=== PATIENT | male | born 2000 | race Caucasian/White ===

== ENCOUNTER 2020-12-18 12:00 | Emergency (ER) | payer OTHER, SELFPAY ==
--- NOTE | 2020-12-18 13:11 | ED.EXTPRO ---
HPI - Extremity Problem General Chief complaint: Extremity Injury, Upper Stated complaint: arm pain Time Seen by Provider: 12/18/20 13:11 History of Present Illness HPI Narrative: Patient complains of left arm pain worse today after lifting weights yesterday, he did not feel a pop or any sudden pain but today he woke up with pain around his biceps muscle, no numbness no weakness no tingling, no other injury Related Data Previous Rx's Medication Instructions Recorded ibuprofen 600 mg PO Q6H PRN #20 tab 12/18/20 Allergies Allergy/AdvReac Type Severity Reaction Status Date / Time pistachio nut [PISTACHIO] Allergy Severe VOMITS Unverified 08/14/20 16:43 THROAT SWELLING DIFFICULTY BREATHING sunflower seed Allergy Unknown VOMITING Unverified 08/14/20 16:43 [SUNFLOWER SEED] Review of Systems Review of Systems: Positive for left arm pain Negatives are no dizziness no weakness no numbness no fatigue no tingling no radiation of pain no skin changes no skin rash PMFSH Past Medical History Source: nursing notes reviewed Medical History (Updated 12/18/20 @ 13:31 by Charo Catherine) No known health problems Social History Social History Smoked in Last 30 Days: No Use of substances other than those prescribed or required for medical reasons: Yes Substance Use Type: Marijuana Substance Use Frequency: Daily Last Used Substance: Hours (ago) Any prior treatment program specific to substance use: No Advance Directives: No Advance Directives Information Provided: Yes Physical Exam Vital Signs: Vital Signs: Last Vital Signs Temp 98.8 F 12/18/20 13:29 Pulse 70 12/18/20 13:29 Resp 14 12/18/20 13:29 BP 126/78 12/18/20 13:29 Pulse Ox 99 12/18/20 13:29 Body Mass Index 19.8 General appearance no acute distress, comfortable and cooperative Normocephalic atraumatic Neck is supple Respiratory no distress Extremities exam of the left arm showed full range of motion without tenderness in the shoulder, the antecubital area and the distal biceps was very tender with no obvious swelling, no obvious defect or deformity, skin was normal in color without ecchymosis, no redness no signs of infection The elbow had limited range of motion on extension due to pain the patient could do it but was uncomfortable and flexion of the biceps was uncomfortable The wrist had full range of motion the forearm was normal,, and neurovascular intact distal Skin no rashes Neuro no focal deficit Course Course Course Narrative: Patient's exam is consistent with either a biceps muscle strain or possible partial tear of biceps tendon and patient is advised to follow-up with orthopedics Discharge Plan Discharge Clinical Impression: Strain of left biceps muscle Qualifiers: Encounter type: initial encounter Qualified Code(s): S46.212A - Strain of muscle, fascia and tendon of other parts of biceps, left arm, initial encounter Patient Disposition: Home, Self-Care Additional Instructions: I believe you injure the biceps muscle or tendon Follow with orthopedist for further evaluation Return any time any worse condition or any concerns Prescriptions: New ibuprofen 600 mg tablet 600 mg PO Q6H PRN (Reason: pain) Qty: 20 RF: 0 Referrals: Catarino Martino MD [Physician] - 2 days (Left bicep tendon or muscle injury) Interventions: ED Discharge Assessment Last Done: 12/18/20 13:40 Discharge Date/Time: 12/18/20 13:40
[2020-12-18 13:29] VITALS: BP 126/78; PULSE 70; RESP 14; TEMP 37.1; O2SAT 99; BMI 19.8
== END 2020-12-18 13:40 | disposition home or self-care (01) ==
PROVIDERS: Emergency Provider Emergency Medicine Emergency Medical Services
DX: S46.212A Strain of muscle, fascia and tendon of other parts of biceps, left arm, initial encounter (principal); M79.602 Pain in left arm; X50.0XXA Overexertion from strenuous movement or load, initial encounter; Y93.9 Activity, unspecified; Y92.9 Unspecified place or not applicable; Y99.9 Unspecified external cause status; Z79.899 Other long term (current) drug therapy
CPT/HCPCS: 99283

== ENCOUNTER 2021-01-05 09:29 | Emergency (ER) | payer OTHER, SELFPAY ==
--- NOTE | 2021-01-05 10:34 | ED_ITS ---
HPI - Abdominal Pain General Chief Complaint: Nausea/Vomiting/Diarrhea Stated Complaint: stomach pain Time Seen by Provider: 01/05/21 10:13 Source: patient Mode of arrival: ambulatory Limitations: no limitations History of Present Illness HPI narrative: 20-year-old male previously healthy here with complaints of epigastric pain which occurs after eating and is associated with nausea x months. The patient tells me sometimes he has vomiting and he vomits up food contents. NBNB emesis. No associated diarrhea, fevers, chills. No weight loss. Patient tells me he is here because she would like some nausea medicine. He is working on getting himself set up with a primary care doctor. He smokes marijuana daily. Denies additional substance use or alcohol use. MD elicited complaint: abdominal pain Pain Consistency: intermittent Location: epigastric Quality: burning Radiation: none Migration to: no migration Exacerbating factors: eating Relieving factors: vomiting Associated symptoms: nausea and vomiting Related Data Previous Rx's Medication Instructions Recorded ibuprofen 600 mg PO Q6H PRN #20 tab 12/18/20 omeprazole 40 mg PO DAILY #14 cap 01/05/21 ondansetron 4 mg PO Q6H PRN #10 tab 01/05/21 Allergies Allergy/AdvReac Type Severity Reaction Status Date / Time pistachio nut [PISTACHIO] Allergy Severe VOMITS Verified 01/05/21 10:41 THROAT SWELLING DIFFICULTY BREATHING sunflower seed Allergy Unknown VOMITING Verified 01/05/21 10:41 [SUNFLOWER SEED] Review of Systems Review of Systems Yes all other systems are reviewed and are negative Constitutional: Reports no additional constitutional complaints, Denies body ache(s), Denies chills, Denies fever(s), Denies headache(s) and Denies weakness Eyes: Reports no additional eye complaints and Denies change in vision Reports system reviewed and no additional complaints, except as documented, Denies dizziness, Denies headache(s), Denies nasal congestion, Denies nasal discharge and Denies neck pain Cardiovascular: Reports no additional cardiovascular complaints, Denies chest pain, Denies leg edema and Denies dyspnea Respiratory: Reports no additional respiratory complaints, Denies cough and Denies dyspnea Gastrointestinal: Reports no additional gastrointestinal complaints, Reports abdominal pain, Denies diarrhea, Reports nausea and Reports vomiting Genitourinary: Denies urinary incontinence Musculoskeletal: Reports no additional musculoskeletal complaints, Denies back pain, Denies arthralgias, Denies joint swelling, Denies neck pain, Denies numbness and Denies tingling Skin/Breast: Reports system reviewed and no additional complaints, except as docu and Denies rash Reports system reviewed and no additional complaints, except as documented, Denies Abnormal speech present, Denies dizziness, Denies headache(s), Denies numbness, Denies tingling and Denies weakness Physical Exam Vital Signs: Vital Signs: Last Vital Signs Temp 97.8 F 01/05/21 10:38 Pulse 64 01/05/21 10:38 Resp 16 01/05/21 10:38 BP 132/85 01/05/21 10:38 Pulse Ox 99 01/05/21 10:38 Body Mass Index 19.8 Const: General: cooperative, healthy appearing, comfortable and no acute distress Orientation/consciousness: patient oriented x3 Limitations: no limitations HENMT: Head: Yes normal to inspection Ears: hearing grossly normal bilaterally General nose exam: Normal external nose present Face and sinus: Yes normal facial exam Mouth: Normal oral and palatal mucosa present Throat: Yes posterior oropharynx normal Eyes: General: appearance normal, both eyes and all related structures Pupils: Equal, round and reactive pupils present Neck: Neck: Yes normal visual inspection Chest: Chest palpation & inspection: normal inspection of the chest Resp: Effort & Inspection: normal respiratory effort Auscultation: clear to auscultation bilaterally Cardio: Rate: regular rate Rhythm: regular rhythm Peripheral pulses: Peripheral pulses 2+ throughout GI: Inspection: Yes normal to inspection Palpation (GI): Soft to palpation and nontender Auscultation: normal bowel sounds Back/Spine/Pelvis: Thoracic/Lumbar Spine: thoracic and lumbar spine normal to inspection Skin: General skin exam: no rashes or lesions noted Neuro: General: patient oriented x3, no focal motor deficits and normal sensation to monofilament Cranial nerves: Yes Equal, round and reactive pupils present Cognition (Neuro): normal cognition Speech: No Abnormal speech present Gait exam (Neuro): Normal gait present Motor exam (neuro): 5/5 motor strength present throughout Extrem: General: Yes normal to inspection Course Course Course Narrative: 20-year-old male here with epigastric pain after eating with intermittent nausea and vomiting times several months. Patient denies pain on arrival to the emergency department. He tells me he is feels well and is tolerating p.o. he is working on establishing a primary care doctor. He requesting nausea medicine. Abdomen soft nontender, patient is well-appearing with stable vital signs. Likely GERD. Will start patient on PPI until he establishes a primary care doctor. Discussed GERD diet at home. Reviewed worrisome signs symptoms and when to return to the emergency department. Comfortable discharge home. Discharge Plan Discharge Clinical Impression: GERD (gastroesophageal reflux disease) Qualifiers: Esophagitis presence: esophagitis presence not specified Qualified Code(s): K21.9 - Gastro-esophageal reflux disease without esophagitis Patient Disposition: Home, Self-Care Instructions: Diet for Stomach Ulcers and Gastritis (ED), Gastroesophageal Reflux Disease (ED) Additional Instructions: Avoid all spicy, greasy, fatty foods, No dairy or citrus. VERY bland diet Avoid marijuana for a few weeks After eating stay sitting up for 30 minutes, do not eat within 2 hrs of sleeping Follow-up with PCP. Return for severe abdominal pain, 2 or more vomiting episodes, blood in the vomit or blood in the stools Prescriptions: New omeprazole 40 mg capsule,delayed release(DR/EC) 40 mg PO DAILY Qty: 14 RF: 0 ondansetron 4 mg tablet,disintegrating 4 mg PO Q6H PRN (Reason: nausea and vomiting) Qty: 10 RF: 0 No Action ibuprofen 600 mg tablet 600 mg PO Q6H PRN (Reason: pain) Qty: 20 RF: 0 Referrals: Physician,None [Primary Care Provider] - 2 days Interventions: ED Discharge Assessment Last Done: 01/05/21 10:42 Discharge Date/Time: 01/05/21 10:44 [facility] Past Medical History Attestation statement: The following information was validated with the patient. Source: old records reviewed and nursing notes reviewed Medical History No known health problems Social History Social History Substance Use Type: Marijuana Advance Directives: No Advance Directives Information Provided: No
[2021-01-05 10:38] VITALS: BP 132/85; PULSE 64; RESP 16; TEMP 36.6; O2SAT 99; BMI 19.8
== END 2021-01-05 10:44 | disposition home or self-care (01) ==
LOC: HO.ED 10:39
PROVIDERS: Emergency Provider Emergency Medicine
DX: K21.9 Gastro-esophageal reflux disease without esophagitis (principal); F12.90 Cannabis use, unspecified, uncomplicated
CPT/HCPCS: 99283

== ENCOUNTER 2021-05-24 20:41 | Emergency (ER) | payer OTHER, SELFPAY ==
[2021-05-24 20:44] VITALS: BP 136/75; PULSE 137; RESP 16; TEMP 36.8; O2SAT 97; BMI 20.4
--- NOTE | 2021-05-24 21:28 | ED.ABDPAIN ---
HPI - Abdominal Pain General Chief Complaint: Abdominal Pain Stated Complaint: ABD PAIN Time Seen by Provider: 05/24/21 21:26 History of Present Illness HPI narrative: 21-year-old male presented having abdominal pain. The pain is epigastric in nature. Happen after a milkshake. Patient denies having current pain. No nausea no vomiting. Symptom has completely resolved. No cough no congestion or upper respiratory symptoms. No diarrhea. No history of abdominal surgery. Patient is from home. Related Data Allergies Allergy/AdvReac Type Severity Reaction Status Date / Time pistachio nut [PISTACHIO] Allergy Severe VOMITS Verified 05/24/21 21:35 THROAT SWELLING DIFFICULTY BREATHING sunflower seed Allergy Unknown VOMITING Verified 05/24/21 21:35 [SUNFLOWER SEED] Review of Systems Review of Systems Positive abdominal pain positive nausea vomiting no diarrhea no upper respiratory symptoms Yes all other systems are reviewed and are negative Physical Exam Vital Signs: Vital Signs: Last Vital Signs Temp 99.7 F 05/24/21 21:35 Pulse 112 H 05/24/21 21:35 Resp 17 05/24/21 21:35 BP 132/85 05/24/21 21:35 Pulse Ox 99 05/24/21 21:35 Body Mass Index 20.4 Appearance: Alert. Oriented X3. No acute distress. Eyes: Pupils equal, round and reactive to light. ENT: Pharynx normal. Neck: Normal inspection. Neck supple. No lymph nodes noted. No crepitus CVS: Normal heart rate and rhythm. Pulses normal. Normal S1 and S2 Respiratory: No respiratory distress. Breath sounds normal. No Wheezing. No rales Abdomen: Soft and nontender. No rigidity. No distention. good BS x4 Skin: Skin warm and dry. Normal skin color. Normal skin turgor. Extremities: No lower extremity edema. Neurovascular intact to all extremities. No Lacerations. No Rash Neuro: Oriented X 3. No motor deficit. No sensory deficit. Moving all extermities. No slurred speech MDM - Abdominal Pain MDM Narrative Medical decision making narrative: Labs unremarkable. Patient well-appearing repeat abdominal exam soft nontender nondistended. Will discharge patient home close follow-up outpatient basis. No evidence for appendicitis at this time. Differential Diagnosis Differential diagnosis: Likely acute appendicitis, calculus of kidney and constipation Lab Data Result diagrams: 05/24/21 21:47 05/24/21 21:47 Labs: Lab Results 05/24/21 05/24/21 05/24/21 Range/Units 21:43 21:47 21:47 WBC 10.9 H (4.8-10.8) X10*3/uL RBC 5.35 (4.60-5.80) X10*6/uL Hgb 16.0 (14.0-18.0) g/dl Hct 45.9 (42-52) % MCV 85.8 (80-98) fL MCH 29.9 (27.0-33.0) pg MCHC 34.9 (31.0-36.0) g/dl RDW 12.1 (11.0-16.0) % Plt Count 177 (160-400) X10*3/uL MPV 9.8 (9.4-12.4) fL Immature Gran % (Auto) 0.2 (0.0-0.4) % Neut % (Auto) 83.6 H (45-73) % Lymph % (Auto) 6.6 L (20-40) % Phillips % (Auto) 8.5 (2-11) % Eos % (Auto) 0.6 (0-4) % Baso % (Auto) 0.5 (0-2) % Lymph # (Auto) 0.7 L (1.2-4.9) X10*3/uL Phillips # (Auto) 0.9 (0.1-1.2) X10*3/uL Eos # (Auto) 0.1 (0.0-0.4) X10*3/uL Baso # (Auto) 0.1 (0.0-0.2) X10*3/uL Abs Immat Gran (auto) 0.02 (0.00-0.03) X10*3/uL Absolute Neuts (auto) 9.1 H (2.0-8.3) X10*3/uL Absolute Nucleated RBC 0.000 (0.0-0.012) X10*3/uL Nucleated RBC % (auto) 0.0 (0.0-0.2) /100WBC Sodium 140 (135-145) mmol/L Potassium 4.4 (3.3-5.1) mmol/L Chloride 103 (96-108) mmol/L Carbon Dioxide 25 (22-29) mmol/L Anion Gap 16 (12-20) BUN 11 (9-16) mg/dL Creatinine 1.23 (0.5-1.4) mg/dL Estim Creat Clear Calc 93.6 Estimated GFR > 60 Random Glucose 87 (60-115) mg/dL Calcium 9.6 (8.4-10.2) mg/dL Total Bilirubin 1.0 (0.0-1.0) mg/dL AST 22 (5-37) U/L ALT 12 (0-40) U/L Alkaline Phosphatase 60 (39-117) U/L Total Protein 7.7 (6.5-8.0) g/dL Albumin 4.8 (3.5-5.0) g/dL Lipase 17 (8-78) U/L Urine Color DARK YELLOW Urine Appearance CLEAR Urine pH 6.0 (5.0-8.0) Ur Specific [place] 1.025 (1.005-1.025) Urine Protein TRACE (NEG-TRACE) MG/DL Urine Glucose (UA) NEG (NEG) MG/DL Urine Ketones 5 (NEG) MG/DL Urine Blood NEG (NEG) Urine Nitrite NEG (NEG) Ur Leukocyte Esterase NEG (NEG) Discharge Plan Discharge Clinical Impression: Abdominal pain Patient Disposition: Home, Self-Care Instructions: Abdominal Pain (ED) Referrals: Physician,None [Primary Care Provider] - 2 days PMF Past Medical History Attestation statement: The following information was validated with the patient. Medical History No known health problems Social History Social History Alcohol intake: never Patient Tobacco Use Status: Never used Tobacco Use of substances other than those prescribed or required for medical reasons: Yes Substance Use Type: Marijuana Advance Directives: No Advance Directives Information Provided: Yes
[2021-05-24 21:35] VITALS: BP 132/85; PULSE 112; RESP 17; TEMP 37.6; O2SAT 99
[2021-05-24 21:52] LABS: MANUAL DIFF FLAG NO
[2021-05-24 21:53] LABS: Basophils Absolute Auto 0.1 X10*3/uL (0.0-0.2); Basophils Percent Auto 0.5 % (0-2); Eosinophils Absolute Auto 0.1 X10*3/uL (0.0-0.4); Eosinophils Percent Auto 0.6 % (0-4); Hematocrit 45.9 % (42-52); Imm Gran Abs Auto 0.02 X10*3/uL (0.00-0.03); Imm Gran Pct Auto 0.2 % (0.0-0.4); Lymphocytes Absolute Auto 0.7 X10*3/uL (1.2-4.9); Lymphocytes Percent Auto 6.6 % (20-40); Mean Corpuscular HGB Conc 34.9 g/dl (31.0-36.0); Mean Corpuscular Hemoglobin 29.9 pg (27.0-33.0); Mean Corpuscular Volume 85.8 fL (80-98); Mean Platelet Volume 9.8 fL (9.4-12.4); Monocytes Absolute Auto 0.9 X10*3/uL (0.1-1.2); Monocytes Percent Auto 8.5 % (2-11); Neutrophils Absolute Auto 9.1 X10*3/uL (2.0-8.3); Neutrophils Percent Auto 83.6 % (45-73); Platelet Count 177 X10*3/uL (160-400); Red Blood Count 5.35 X10*6/uL (4.60-5.80); Red Cell Distribution Width 12.1 % (11.0-16.0); White Blood Count 10.9 X10*3/uL (4.8-10.8)
[2021-05-24 21:55] LABS: Appearance Urine CLEAR; Color Urine DARK YELLOW; Glucose Urine UA NEG (NEG); Leukocyte Esterase Urine NEG (NEG); Nitrite Urine NEG (NEG); Specific Gravity - Urine 1.025 (1.005-1.025); Urine Blood NEG (NEG); Urine Ketones 5 MG/DL (NEG); Urine Protein TRACE MG/DL (NEG-TRACE)
[2021-05-24 22:25] LABS: Alanine Aminotransferase 12 U/L (0-40); Albumin Level 4.8 g/dL (3.5-5.0); Alkaline Phosphatase 60 U/L (39-117); Anion Gap 16 (12-20); Aspartate Amino Transferase 22 U/L (5-37); Blood Urea Nitrogen 11 mg/dL (9-16); Calcium 9.6 mg/dL (8.4-10.2); Carbon Dioxide 25 mmol/L (22-29); Chloride 103 mmol/L (96-108); Creatinine Clr Calc Pharmacy 93.6; Estimated Glomerular Filt Rate > 60; Glucose Random 87 mg/dL (60-115); Lipase 17 U/L (8-78); Potassium 4.4 mmol/L (3.3-5.1); Sodium 140 mmol/L (135-145); Total Protein 7.7 g/dL (6.5-8.0)
== END 2021-05-24 23:10 | disposition home or self-care (01) ==
PROVIDERS: Emergency Provider Emergency Medicine Emergency Medical Services
DX: R10.13 Epigastric pain (principal)
CPT/HCPCS: 36415; 80053; 81003; 83690; 85025; 99283; 99285

== ENCOUNTER 2021-05-26 12:56 | Emergency (ER) | payer OTHER, SELFPAY ==
[2021-05-26 13:25] VITALS: PULSE 103; RESP 18; TEMP 36.7; O2SAT 98; BMI 20.4
--- NOTE | 2021-05-26 14:28 | ED_ITS ---
HPI - Abdominal Pain General Chief Complaint: Abdominal Pain Stated Complaint: stomach pain Time Seen by Provider: 05/26/21 13:41 Source: patient Mode of arrival: ambulatory History of Present Illness HPI narrative: 21-year-old male presenting to the ED complaining of generalized abdominal pain, nausea, & 1 episode of vomiting [employer] , resolved at present. Requesting prescription for Zofran. Admits seen and treated in the ED 2 days ago for similar symptoms, had Zofran with symptomatic improvement. denies fever, chills, diarrhea / constipation, suspicious food intake, dysuria/ hematuria, travel, sick contacts MD elicited complaint: abdominal pain Related Data Previous Rx's Medication Instructions Recorded ondansetron HCl [Zofran] 4 mg PO Q8H PRN #10 tab 05/26/21 Allergies Allergy/AdvReac Type Severity Reaction Status Date / Time pistachio nut [PISTACHIO] Allergy Intermediate VOMITS Verified 05/26/21 13:25 THROAT SWELLING DIFFICULTY BREATHING sunflower seed Allergy Unknown VOMITING Verified 05/26/21 13:25 [SUNFLOWER SEED] Review of Systems Review of Systems Constitutional: No Fever, No Chills Gastrointestinal: +Nausea(resolved), +Vomiting (resolved), No Diarrhea, No Constipation, +Abdominal pain (resolved) Genitourinary: No Dysuria, No Hematuria,No Flank Pain Musculoskeletal: No joint pain, No Myalgias, No Joint Swelling Skin: No Skin Lesions, No rash Neuro: No Weakness, No Nu No Headache Yes all other systems are reviewed and are negative Physical Exam Vital Signs: Vital Signs: Last Vital Signs Temp 98.0 F 05/26/21 13:25 Pulse 103 H 05/26/21 13:25 Resp 18 05/26/21 13:25 Pulse Ox 98 05/26/21 13:25 Body Mass Index 20.4 Const: General: cooperative, healthy appearing and no acute distress Orientation/consciousness: patient oriented x3 Limitations: no limitations HENMT: Head: Yes normal to inspection Ears: hearing grossly normal bilaterally General nose exam: Normal external nose present Face and sinus: Yes normal facial exam Eyes: General: appearance normal, both eyes and all related structures EOM: EOMs intact bilaterally Neck: Neck: Yes normal visual inspection and Yes no meningeal signs Resp: Effort & Inspection: normal respiratory effort Cardio: Rate: regular rate GI: Inspection: Yes normal to inspection Palpation (GI): Soft to palpation, nontender, no guarding and not rigid : General: Yes no CVA tenderness Back/Spine/Pelvis: Back: no CVA tenderness Skin: Rashes: no rashes Wounds: no wounds Neuro: General: patient oriented x3 and no meningeal signs Gait exam (Neuro): Normal gait present Extrem: General: Yes normal to inspection MDM - Abdominal Pain MDM Narrative Medical decision making narrative: 21-year-old male presenting to the ED complaining of generalized abdominal pain, nausea, & 1 episode of vomiting [employer] , resolved at present. on exam VSS, NAD, well appearing, asymptomatic at present, abdomen soft and nontender, no CVAT. Visit/ labs reviewed from 2 days ago which were unremarkable. Likely gastroenteritis or gastritis/GERD. Low concern for appendicitis / diverticulitis, cholecystitis or pancreatitis Plan: Zofran prescription, strict return precautions discussed, patient verbalized understanding and feels safe for discharge home Discharge Plan Discharge Clinical Impression: Abdominal pain Qualifiers: Abdominal location: unspecified location Qualified Code(s): R10.9 - Unspecified abdominal pain Patient Disposition: Home, Self-Care Instructions: Acute Nausea and Vomiting (ED) Additional Instructions: Zofran as an antinausea medication, take as needed You need to follow-up with her primary care doctor If her symptoms persist or worsen, become more constant, you are unable to eat or drink, develops fever, or abdominal pain please return to the ED Prescriptions: New ondansetron HCl [Zofran] 4 mg tablet 4 mg PO Q8H PRN (Reason: nausea and vomiting) Qty: 10 RF: 0 Referrals: Physician,None [Primary Care Provider] - 2 days PMFSH Past Medical History Attestation statement: The following information was validated with the patient. Medical History No known health problems Social History Social History Alcohol intake: never Patient Tobacco Use Status: Never used Tobacco Substance Use Type: Marijuana Advance Directives: No Advance Directives Information Provided: No
== END 2021-05-26 15:13 | disposition home or self-care (01) ==
PROVIDERS: Emergency Provider Emergency Medicine Emergency Medical Services
DX: R10.84 Generalized abdominal pain (principal); R11.2 Nausea with vomiting, unspecified
CPT/HCPCS: 99283

== ENCOUNTER 2021-07-17 06:45 | Emergency (ER) | payer OTHER, SELFPAY ==
[2021-07-17 08:22] VITALS: BP 136/73; PULSE 83; RESP 18; TEMP 36.7; O2SAT 97
[2021-07-17 09:27] LABS: MANUAL DIFF FLAG NO
[2021-07-17 09:28] LABS: Basophils Percent Auto 0.5 % (0-2); Eosinophils Absolute Auto 0.2 X10*3/uL (0.0-0.4); Eosinophils Percent Auto 2.1 % (0-4); Hematocrit 46.7 % (42-52); Hemoglobin 15.9 g/dl (14.0-18.0); Imm Gran Abs Auto 0.03 X10*3/uL (0.00-0.03); Imm Gran Pct Auto 0.4 % (0.0-0.4); Lymphocytes Absolute Auto 1.2 X10*3/uL (1.2-4.9); Lymphocytes Percent Auto 14.6 % (20-40); Mean Corpuscular Hemoglobin 29.2 pg (27.0-33.0); Mean Corpuscular Volume 85.8 fL (80-98); Mean Platelet Volume 9.8 fL (9.4-12.4); Monocytes Absolute Auto 0.4 X10*3/uL (0.1-1.2); Neutrophils Absolute Auto 6.4 X10*3/uL (2.0-8.3); Neutrophils Percent Auto 77.4 % (45-73); Platelet Count 187 X10*3/uL (160-400); Red Blood Count 5.44 X10*6/uL (4.60-5.80); Red Cell Distribution Width 12.5 % (11.0-16.0); White Blood Count 8.2 X10*3/uL (4.8-10.8)
[2021-07-17] MEDS: 0.9 % Sodium Chloride 1,000 ML 999 ML IV ×2 (09:33→10:15)
[2021-07-17 10:00] LABS: COVID-19 Test Negative (Negative)
[2021-07-17 10:09] LABS: Alanine Aminotransferase 18 U/L (0-40); Albumin Level 4.9 g/dL (3.5-5.0); Alkaline Phosphatase 53 U/L (39-117); Anion Gap 14 (12-20); Aspartate Amino Transferase 16 U/L (5-37); Bilirubin Direct 0.5 mg/dL (0.0-0.5); Bilirubin Total 1.3 mg/dL (0.0-1.0); Blood Urea Nitrogen 11 mg/dL (9-16); Calcium 9.9 mg/dL (8.4-10.2); Carbon Dioxide 26 mmol/L (22-29); Chloride 104 mmol/L (96-108); Creatinine Clr Calc Pharmacy 94.1; Estimated Glomerular Filt Rate > 60; Glucose Random 97 mg/dL (60-115); Lipase 17 U/L (8-78); Potassium 4.3 mmol/L (3.3-5.1); Sodium 140 mmol/L (135-145); Total Protein 7.3 g/dL (6.5-8.0)
--- NOTE | 2021-07-17 10:09 | ED_ITS ---
HPI - Abdominal Pain General Chief Complaint: Abdominal Pain Stated Complaint: stomach bug Time Seen by Provider: 07/17/21 09:30 Source: patient Mode of arrival: ambulatory Limitations: no limitations History of Present Illness HPI narrative: Patient presents to the ED for upper abdominal discomfort and vomiting after having new Vanilla Setswana Coffee from [employer]. Patient states never having thai Vanilla Coffee from [employer] and states it tasted weird. Patient states by the time he came to the ED symptoms resolved. Patient did not having food this morning. Patient denies any fever, chills, or diarrhea. Patient denies any surgical abdominal history. MD elicited complaint: abdominal pain Related Data Previous Rx's Medication Instructions Recorded ondansetron HCl 4 mg tablet 4 mg PO Q8H PRN #10 tab 05/26/21 (Zofran) Allergies Allergy/AdvReac Type Severity Reaction Status Date / Time pistachio nut [PISTACHIO] Allergy Intermediate VOMITS Verified 05/26/21 13:25 THROAT SWELLING DIFFICULTY BREATHING sunflower seed Allergy Unknown VOMITING Verified 05/26/21 13:25 [SUNFLOWER SEED] peanut Allergy Anaphylaxis Verified 07/17/21 08:25 Review of Systems Review of Systems Yes all other systems are reviewed and are negative Constitutional: Reports as per HPI and Reports no additional constitutional complaints Eyes: Reports as per HPI and Reports no additional eye complaints Reports system reviewed and no additional complaints, except as documented and Reports as per HPI Cardiovascular: Reports as per HPI and Reports no additional cardiovascular complaints Respiratory: Reports as per HPI and Reports no additional respiratory complaints Gastrointestinal: Reports as per HPI, Reports no additional gastrointestinal complaints, Reports abdominal pain and Reports nausea Genitourinary: Reports no additional male genitourinary complaints and Reports as per HPI Musculoskeletal: Reports no additional musculoskeletal complaints and Reports as per HPI Reports system reviewed and no additional complaints, except as documented and Reports as per HPI Psychiatric: Reports no additional psychiatric complaints and Reports as per HPI Physical Exam Vital Signs: Vital Signs: Last Vital Signs Temp 98.0 F 07/17/21 08:22 Pulse 70 07/17/21 10:13 Resp 18 07/17/21 10:13 BP 126/47 L 07/17/21 10:13 Pulse Ox 99 07/17/21 10:13 Body Mass Index 20.0 Const: General: cooperative, healthy appearing, comfortable, no acute distress, well developed, alert, awake and Physically active Orientation/consciousness: oriented to time and patient oriented x3 HENMT: Head: Yes normal to inspection, Yes No palpable skull fracture present, Yes normocephalic and Yes atraumatic Eyes: General: appearance normal, both eyes and all related structures Neck: Neck: Yes normal visual inspection, Yes full ROM, Yes no ly mphadenopathy, Yes no meningeal signs, Yes trachea midline, Yes supple and No tender Chest: Chest palpation & inspection: normal inspection of the chest and normal palpation of entire chest wall Resp: Effort & Inspection: normal respiratory effort and able to speak in complete sentences Auscultation: clear to auscultation bilaterally Cardio: Jugular venous distension: no JVD Heart sounds: S1 normal heart sound present and S2 normal heart sound present GI: Inspection: Yes normal to inspection and No abdominal wall ecchymosis Palpation (GI): Soft to palpation, not firm, nontender, no guarding and not rigid : General: No CVA tenderness and Yes no CVA tenderness Back/Spine/Pelvis: Back: no CVA tenderness, No CVA tenderness and No back tenderness Skin: General skin exam: no rashes or lesions noted and elasticity normal Neuro: General: oriented to time, patient oriented x3, gait normal, no meningeal signs and CN's II-XI intact bilaterally Cranial nerves: Yes CN's II-XII intact bilaterally Extrem: General: Yes normal to inspection and Yes full ROM Right upper extremity: normal to inspection Psych: Appearance: grossly normal, well kempt and not disheveled Course Course Course Narrative: Bedside ultrasound negative for gallstones. Patient presently asymptomatic will just give IV fluids. Basic labs ordered an COVID swab. Reevaluation(s) Reevaluation #1: Patient had some pain and nausea that return and resolved after being given Pepcid and nausea medication. Patient states feels fine and would like to be discharged. Abdomen re-examined negative for any tenderness on palpation. Labs are normal. Waiting for UA. Time: 11:40 Reevaluation #2: Patient urinalysis negative. Patient feels better would like to be discharged. Patient educated on brat diet. MDM - Abdominal Pain MDM Narrative Medical decision making narrative: Food poising Lab Data Result diagrams: 07/17/21 09:23 07/17/21 09:23 Labs: Lab Results 0807/17/21 07/17/21 Range/Units 09:23 09:23 09:30 WBC 8.2 (4.8-10.8) X10*3/uL RBC 5.44 (4.60-5.80) X10*6/uL Hgb 15.9 (14.0-18.0) g/dl Hct 46.7 (42-52) % MCV 85.8 (80-98) fL MCH 29.2 (27.0-33.0) pg MCHC 34.0 (31.0-36.0) g/dl RDW 12.5 (11.0-16.0) % Plt Count 187 (160-400) X10*3/uL MPV 9.8 (9.4-12.4) fL Immature Gran % (Auto) 0.4 (0.0-0.4) % Neut % (Auto) 77.4 H (45-73) % Lymph % (Auto) 14.6 L (20-40) % [place] % (Auto) 5.0 (2-11) % Eos % (Auto) 2.1 (0-4) % Baso % (Auto) 0.5 (0-2) % Lymph # (Auto) 1.2 (1.2-4.9) X10*3/uL [place] # (Auto) 0.4 (0.1-1.2) X10*3/uL Eos # (Auto) 0.2 (0.0-0.4) X10*3/uL Baso # (Auto) 0.0 (0.0-0.2) X10*3/uL Abs Immat Gran (auto) 0.03 (0.00-0.03) X10*3/uL Absolute Neuts (auto) 6.4 (2.0-8.3) X10*3/uL Absolute Nucleated RBC 0.000 (0.0-0.012) X10*3/uL Nucleated RBC % (auto) 0.0 (0.0-0.2) /100WBC Sodium 140 (135-145) mmol/L Potassium 4.3 (3.3-5.1) mmol/L Chloride 104 (96-108) mmol/L Carbon Dioxide 26 (22-29) mmol/L Anion Gap 14 (12-20) BUN 11 (9-16) mg/dL Creatinine 1.20 (0.5-1.4) mg/dL Estim Creat Clear Calc 94.1 Estimated GFR > 60 Random Glucose 97 (60-115) mg/dL Calcium 9.9 (8.4-10.2) mg/dL Total Bilirubin 1.3 H (0.0-1.0) mg/dL Direct Bilirubin 0.5 (0.0-0.5) mg/dL AST 16 (5-37) U/L ALT 18 (0-40) U/L Alkaline Phosphatase 53 (39-117) U/L Total Protein 7.3 (6.5-8.0) g/dL Albumin 4.9 (3.5-5.0) g/dL Lipase 17 (8-78) U/L Urine Color Urine Appearance Urine pH (5.0-8.0) Ur Specific [place] (1.005-1.025) Urine Protein (NEG-TRACE) MG/DL Urine Glucose (UA) (NEG) MG/DL Urine Ketones (NEG) MG/DL Urine Blood (NEG) Urine Nitrite (NEG) Ur Leukocyte Esterase (NEG) COVID-19 ([facility]) Negative (Negative) COVID-19 Clin Com See Note 07/17/21 Range/Units 11:37 WBC (4.8-10.8) X10*3/uL RBC (4.60-5.80) X10*6/uL Hgb (14.0-18.0) g/dl Hct (42-52) % MCV (80-98) fL MCH (27.0-33.0) pg MCHC (31.0-36.0) g/dl RDW (11.0-16.0) % Plt Count (160-400) X10*3/uL MPV (9.4-12.4) fL Immature Gran % (Auto) (0.0-0.4) % Neut % (Auto) (45-73) % Lymph % (Auto) (20-40) % [place] % (Auto) (2-11) % Eos % (Auto) (0-4) % Baso % (Auto) (0-2) % Lymph # (Auto) (1.2-4.9) X10*3/uL [place] # (Auto) (0.1-1.2) X10*3/uL Eos # (Auto) (0.0-0.4) X10*3/uL Baso # (Auto) (0.0-0.2) X10*3/uL Abs Immat Gran (auto) (0.00-0.03) X10*3/uL Absolute Neuts (auto) (2.0-8.3) X10*3/uL Absolute Nucleated RBC (0.0-0.012) X10*3/uL Nucleated RBC % (auto) (0.0-0.2) /100WBC Sodium (135-145) mmol/L Potassium (3.3-5.1) mmol/L Chloride (96-108) mmol/L Carbon Dioxide (22-29) mmol/L Anion Gap (12-20) BUN (9-16) mg/dL Creatinine (0.5-1.4) mg/dL Estim Creat Clear Calc Estimated GFR Random Glucose (60-115) mg/dL Calcium (8.4-10.2) mg/dL Total Bilirubin (0.0-1.0) mg/dL Direct Bilirubin (0.0-0.5) mg/dL AST (5-37) U/L ALT (0-40) U/L Alkaline Phosphatase (39-117) U/L Total Protein (6.5-8.0) g/dL Albumin (3.5-5.0) g/dL Lipase (8-78) U/L Urine Color YELLOW Urine Appearance CLEAR Urine pH 7.0 (5.0-8.0) Ur Specific [place] 1.010 (1.005-1.025) Urine Protein NEG (NEG-TRACE) MG/DL Urine Glucose (UA) NEG (NEG) MG/DL Urine Ketones 5 (NEG) MG/DL Urine Blood NEG (NEG) Urine Nitrite NEG (NEG) Ur Leukocyte Esterase NEG (NEG) COVID-19 ([facility]) (Negative) COVID-19 Clin Com Discharge Plan Discharge Clinical Impression: Food poisoning Patient Disposition: Home, Self-Care Instructions: Food Poisoning (ED) Additional Instructions: Return to the ED for worsening abdominal pain, abdominal pain radiating to right or left lower quadrant, intractable nausea/vomiting, inability to tolerate solid food/liquid, fever, chills, chest pain, shortness of breath, dysuria, hematuria, flank pain, testicular pain, dizziness, rectal bleeding, blood in stool, black stool, or any other concerning symptoms. Recommend BRAT diet ( [place], Rice, Applesauce, and [place]). Prescriptions: No Action ondansetron HCl [Zofran] 4 mg tablet 4 mg PO Q8H PRN (Reason: nausea and vomiting) Qty: 10 RF: 0 Interventions: ED Discharge Assessment Last Done: 07/17/21 12:23 Discharge Date/Time: 07/17/21 12:25 Print Language: French [facility] Past Medical History Medical History No known health problems Social History Social History Alcohol intake: never Patient Tobacco Use Status: Never used Tobacco Substance Use Type: Marijuana Substance Use Frequency: Daily Advance Directives: No Advance Directives Information Provided: Yes
[2021-07-17] MEDS: ondansetron HCL 4 MG/2 ML VIAL IVPUSH (10:11)
[2021-07-17 10:13] VITALS: BP 126/47; PULSE 70; RESP 18; O2SAT 99
[2021-07-17] MEDS: Famotidine/PF 20 MG/2 ML VIAL IVPUSH (10:13)
--- NOTE | 2021-07-17 10:17 | PC.NURSE ---
Pt had reported return of nausea and discomfort. IV zofran and pepcid given as ordered.
--- NOTE | 2021-07-17 11:20 | PC.NURSE ---
Pt reports overall feeling better and denies nausea/abd discomfort at this time.
[2021-07-17 11:42] LABS: Glucose Urine UA NEG (NEG); Leukocyte Esterase Urine NEG (NEG); Nitrite Urine NEG (NEG); Urine Blood NEG (NEG); Urine Ketones 5 MG/DL (NEG); Urine Protein NEG (NEG-TRACE)
[2021-07-17 11:43] LABS: Appearance Urine CLEAR; Color Urine YELLOW
== END 2021-07-17 12:25 | disposition home or self-care (01) ==
PROVIDERS: Physician Assistant; Emergency Provider Internal Medicine
DX: A05.9 Bacterial foodborne intoxication, unspecified (principal); Z20.822 Contact with and (suspected) exposure to COVID-19; R10.10 Upper abdominal pain, unspecified
CPT/HCPCS: 36415; 80053; 81003; 82248; 83690; 85025; 87635; 96361; 96374; 96375; 99284; J2405

== ENCOUNTER 2021-08-22 07:09 | Emergency (ER) | payer OTHER, SELFPAY ==
[2021-08-22 07:16] VITALS: BP 152/80; PULSE 83; RESP 18; TEMP 36.5; O2SAT 98; BMI 18.8
--- NOTE | 2021-08-22 08:58 | ED.ABDPAIN ---
HPI - Abdominal Pain General Chief Complaint: Abdominal Pain Stated Complaint: abd pain Time Seen by Provider: 08/22/21 08:58 History of Present Illness HPI narrative: Patient is 21 years old presents today with having abdominal pain earlier. It subsequently resolved itself. There is no dizziness. No nausea no vomiting. Patient just drank coffee without having any food. He is 22 years old he has no significant past medical history. Has some allergies to food. No chest pain or diaphoresis. No history diabetes, hypertension, high cholesterol, smoking, mi. Patient from home. Currently has no symptoms. Related Data Previous Rx's Medication Instructions Recorded ondansetron HCl 4 mg tablet 4 mg PO Q8H PRN #10 tab 05/26/21 (Zofran) Allergies Allergy/AdvReac Type Severity Reaction Status Date / Time pistachio nut [PISTACHIO] Allergy Intermediate VOMITS Verified 05/26/21 13:25 THROAT SWELLING DIFFICULTY BREATHING sunflower seed Allergy Unknown VOMITING Verified 05/26/21 13:25 [SUNFLOWER SEED] peanut Allergy Anaphylaxis Verified 07/17/21 08:25 Review of Systems Review of Systems Positive nausea positive epigastric pain All systems reviewed otherwise negative Yes all other systems are reviewed and are negative Physical Exam Vital Signs: Vital Signs: Last Vital Signs Temp 97.7 F 08/22/21 07:16 Pulse 83 08/22/21 07:16 Resp 18 08/22/21 07:16 BP 152/80 H 08/22/21 07:16 Pulse Ox 98 08/22/21 07:16 Body Mass Index 18.8 Appearance: Alert. Oriented X3. No acute distress. Eyes: Pupils equal, round and reactive to light. ENT: Pharynx normal. Neck: Normal inspection. Neck supple. No lymph nodes noted. No crepitus CVS: Normal heart rate and rhythm. Pulses normal. Normal S1 and S2 Respiratory: No respiratory distress. Breath sounds normal. No Wheezing. No rales Abdomen: Soft and nontender. No rigidity. No distention. good BS x4 Skin: Skin warm and dry. Normal skin color. Normal skin turgor. Extremities: No lower extremity edema. Neurovascular intact to all extremities. No Lacerations. No Rash Neuro: Oriented X 3. No motor deficit. No sensory deficit. Moving all extermities. No slurred speech MDM - Abdominal Pain MDM Narrative Medical decision making narrative: Abdomen is soft nontender. Patient no distress. Exam is normal. Will discharge patient home. Close follow-up on an outpatient basis. Medical Records Attestation: I reviewed the patient's medical records. Lab Data Attestation: I reviewed the patient's lab results. Discharge Plan Discharge Clinical Impression: Abdominal pain Patient Disposition: Home, Self-Care Instructions: Abdominal Pain (ED) Prescriptions: No Action ondansetron HCl [Zofran] 4 mg tablet 4 mg PO Q8H PRN (Reason: nausea and vomiting) Qty: 10 RF: 0 Referrals: Physician,None [Primary Care Provider] - 2 days Stand Alone Forms: Work/School Release [facility] Past Medical History Attestation statement: The following information was validated with the patient. Medical History No known health problems Social History Social History Alcohol intake: never Patient Tobacco Use Status: Never used Tobacco Substance Use Type: Marijuana Advance Directives: No Advance Directives Information Provided: No
== END 2021-08-22 09:18 | disposition home or self-care (01) ==
PROVIDERS: Emergency Provider Emergency Medicine Emergency Medical Services
DX: R10.9 Unspecified abdominal pain (principal); Z79.899 Other long term (current) drug therapy
CPT/HCPCS: 99283

== ENCOUNTER 2021-10-14 20:09 | Emergency (ER) | payer OTHER, SELFPAY ==
[2021-10-14 20:25] VITALS: BP 157/90; PULSE 119; RESP 18; TEMP 37; O2SAT 96; BMI 19.1
--- NOTE | 2021-10-14 21:06 | ED_ITS ---
HPI - Dental/Oral General Chief complaint: Dental/Oral Stated complaint: tooth pain Time Seen by Provider: 10/14/21 21:05 Source: patient Mode of arrival: ambulatory Limitations: no limitations History of Present Illness HPI Narrative: A 21-year-old male came in for evaluation of dental pain for 5-6 days. Patient declined any facial swelling, no fever, no chills. Patient has an appointment with his dentist tomorrow. Related Data Previous Rx's Medication Instructions Recorded ondansetron HCl 4 mg tablet 4 mg PO Q8H PRN #10 tab 05/26/21 (Zofran) amoxicillin 250 mg/5 mL oral 500 mg (10 mL) PO BID #150 ml 10/14/21 suspension oxycodone 5 mg tablet 5 mg PO BID PRN #5 tab 10/14/21 Allergies Allergy/AdvReac Type Severity Reaction Status Date / Time pistachio nut [PISTACHIO] Allergy Intermediate VOMITS Verified 10/14/21 20:25 THROAT SWELLING DIFFICULTY BREATHING sunflower seed Allergy Unknown VOMITING Verified 10/14/21 20:25 [SUNFLOWER SEED] peanut Allergy Anaphylaxis Verified 10/14/21 20:25 Review of Systems Review of Systems: All other systems are reviewed and are negative Constitutional: Reports as per HPI and Reports no additional constitutional complaints Eyes: Reports as per HPI and Reports no additional eye complaints Reports system reviewed and no additional complaints, except as documented Cardiovascular: Reports as per HPI and Reports no additional cardiovascular complaints Respiratory: Reports as per HPI and Reports no additional respiratory complaints Gastrointestinal: Reports as per HPI and Reports no additional gastrointestinal complaints Genitourinary: Reports no additional female genitourinary complaints Musculoskeletal: Reports no additional musculoskeletal complaints Skin/Breast: Reports system reviewed and no additional complaints, except as d ocu Psychiatric: Reports no additional psychiatric complaints Endocrine: Reports no additional endocrine complaints Hematologic/Lymphatic: Reports no additional hematologic/lymphatic complaints Allergic/Immunologic: Reports no additional allergic/immunologic complaints Reports system reviewed and no additional complaints, except as documented and Reports Abnormal speech present [facility] Past Medical History Medical History No known health problems Social History Social History Alcohol intake: never Patient Tobacco Use Status: Never used Tobacco Substance Use Type: Marijuana Advance Directives: No Advance Directives Information Provided: Yes Physical Exam Vital Signs: Vital Signs: Last Vital Signs Temp 98.6 F 10/14/21 20:25 Pulse 119 H 10/14/21 20:25 Resp 18 10/14/21 20:25 BP 157/90 H 10/14/21 20:25 Pulse Ox 96 10/14/21 20:25 Body Mass Index 19.1 Vital signs have been reviewed as appeared to be correct. Blood pressure elevated (likely due to dental pain). Heart rate elevated (likely due to dental pain). Respiration rate normal. Temperature normal. Oxygen saturation normal. Appearance: Alert. Oriented X3. No acute distress. Head: Normal external exam. Normocephalic. Atraumatic. No [place] signs noted. No raccoon eyes noted. Dental exam: Decay and tenderness over left lower 1st molar tooth, no gum swelling or fluctuation. Eyes: PERRLA. EOMI. Conjunctiva and sclera normal. Eyelids normal. ENT: TM's Normal. Pharynx normal. Uvula midline. Moist mucous membranes. No trismus noted. No drooling noted. No muffled voice noted. Neck: Normal inspection. Neck supple. FROM. No adenopathy. Thyroid Normal. No meningeal signs. No neck mass noted. CVS: Normal heart rate and rhythm. Heart sound normal. No murmurs noted. Pulses normal throughout. Respiratory: No respiratory distress. Painless inspiration. Breath sounds normal. No wheezes/rales/rhonchi noted. Chest nontender. No accessory muscle usage noted or decreased air movement noted. Abdomen: Soft and nontender. Bowel sounds normal in all 4 quadrants. No distention noted. No organomegaly noted. No visible injury noted. Back: No CVA tenderness. Full range of motion noted. Skin: Skin warm and dry. Normal skin color. Normal skin turgor. No rashes/lesions/lacerations noted. Extremities: No lower extremity edema. Extremities exhibit normal range of motion. Extremities nontender. Neuro: Oriented X 3. Cranial nerve exam: II-XII are grossly intact No motor deficit. No sensory deficit. Reflexes normal. Course Course Course Narrative: Assessment and plan. 21-year-old male with dental decay in pain already have an appointment with dentist in the morning. Patient was encouraged to keep the dental appointment tomorrow. Will start the patient on amoxicillin. Discharge Plan Discharge Clinical Impression: Dental caries Patient Disposition: Home, Self-Care Instructions: Toothache (ED) Additional Instructions: Follow-up with your dentist as scheduled tomorrow. Prescriptions: New amoxicillin 250 mg/5 mL suspension for reconstitution 500 mg PO BID Qty: 150 RF: 0 oxycodone 5 mg tablet 5 mg PO BID PRN (Reason: pain) Qty: 5 RF: 0 No Action ondansetron HCl [Zofran] 4 mg tablet 4 mg PO Q8H PRN (Reason: nausea and vomiting) Qty: 10 RF: 0
[2021-10-14] MEDS: Amoxicillin Oral Susp 4,000 MG/80 ML BOTTLE 500 MG PO (21:25)
== END 2021-10-14 22:19 | disposition home or self-care (01) ==
PROVIDERS: Emergency Provider Emergency Medicine
DX: K02.9 Dental caries, unspecified (principal)
CPT/HCPCS: 99283

== ENCOUNTER 2021-10-17 11:23 | Emergency (ER) | payer OTHER, SELFPAY | END 2021-10-17 13:47 | disposition left against medical advice (07) | PROVIDERS: Emergency Provider Emergency Medicine | DX: K08.89 Other specified disorders of teeth and supporting structures (principal) ==

== ENCOUNTER 2021-11-22 04:52 | Emergency (ER) | payer OTHER, SELFPAY ==
[2021-11-22 04:59] VITALS: BP 129/78; PULSE 94; RESP 22; TEMP 36.7; O2SAT 97; BMI 20.7
[2021-11-22 05:09] LABS: MANUAL DIFF FLAG NO
[2021-11-22 05:10] LABS: Basophils Percent Auto 0.4 % (0-2); Eosinophils Absolute Auto 0.3 X10*3/uL (0.0-0.4); Hematocrit 47.5 % (42.0-52.0); Hemoglobin 16.1 g/dl (14.0-18.0); Imm Gran Abs Auto 0.02 X10*3/uL (0.00-0.03); Imm Gran Pct Auto 0.3 % (0.0-0.4); Lymphocytes Absolute Auto 0.9 X10*3/uL (1.2-4.9); Lymphocytes Percent Auto 12.2 % (20-40); Mean Corpuscular HGB Conc 33.9 g/dl (31.0-36.0); Mean Corpuscular Hemoglobin 29.5 pg (27.0-33.0); Mean Corpuscular Volume 87.2 fL (80.0-98.0); Mean Platelet Volume 10.1 fL (9.4-12.4); Monocytes Absolute Auto 0.6 X10*3/uL (0.1-1.2); Monocytes Percent Auto 8.1 % (2-11); Neutrophils Absolute Auto 5.5 x10*3/uL (2.0-8.3); Platelet Count 171 X10*3/uL (160-400); Red Blood Count 5.45 X10*6/uL (4.60-5.80); Red Cell Distribution Width 12.3 % (11.0-16.0); White Blood Count 7.3 X10*3/uL (4.8-10.8)
[2021-11-22 05:27] LABS: COVID-19 Test Negative (Negative); IDNOW Serial# 9DD0AD1C
[2021-11-22 05:35] LABS: Alanine Aminotransferase 21 U/L (0-40); Albumin Level 4.8 g/dL (3.5-5.0); Alkaline Phosphatase 59 U/L (39-117); Anion Gap 12 (12-20); Aspartate Amino Transferase 17 U/L (5-37); Bilirubin Direct 0.7 mg/dL (0.0-0.5); Bilirubin Total 1.6 mg/dL (0.0-1.0); Blood Urea Nitrogen 13 mg/dL (9-16); Calcium 9.8 mg/dL (8.4-10.2); Carbon Dioxide 28 mmol/L (22-29); Chloride 104 mmol/L (96-108); Creatinine Clr Calc Pharmacy 92.7; Estimated Glomerular Filt Rate > 60; Glucose Random 89 mg/dL (60-115); Lipase 31 U/L (8-78); Potassium 3.8 mmol/L (3.3-5.1); Sodium 140 mmol/L (135-145); Total Protein 7.2 g/dL (6.5-8.0)
--- NOTE | 2021-11-22 06:29 | ED.NAVMDI ---
HPI - Nausea/Vomiting/Diarrhea General Chief complaint: Nausea/Vomiting/Diarrhea Stated complaint: Stomach Pain Time Seen by Provider: 11/22/21 06:23 Source: patient Mode of arrival: ambulatory Limitations: no limitations History of Present Illness MD elicited complaint: nausea and vomiting Onset (ago): hour(s) (last several ) Description of vomiting: watery Associated nausea: Yes Associated abdominal pain: No Severity: mild Exacerbating factors: eating Relieving factors: none Context: other (vomited x 3) Associated symptoms: denies other symptoms Treatment prior to arrival: other (given ODT zofran prior to my evaluation) Related Data Previous Rx's Medication Instructions Recorded ondansetron HCl 4 mg tablet 4 mg PO Q8H PRN #10 tab 05/26/21 (Zofran) amoxicillin 250 mg/5 mL oral 500 mg (10 mL) PO BID #150 ml 10/14/21 suspension oxycodone 5 mg tablet 5 mg PO BID PRN #5 tab 10/14/21 ondansetron 4 mg disintegrating 4 mg PO Q8H PRN #20 tab 11/22/21 tablet Allergies Allergy/AdvReac Type Severity Reaction Status Date / Time pistachio nut [PISTACHIO] Allergy Intermediate VOMITS Verified 10/14/21 20:25 THROAT SWELLING DIFFICULTY BREATHING sunflower seed Allergy Unknown VOMITING Verified 10/14/21 20:25 [SUNFLOWER SEED] peanut Allergy Anaphylaxis Verified 10/14/21 20:25 Review of Systems Review of Systems: Constitutional : No Weight loss, No Fever, No Chills ENT/Mouth : No sore throat, No Rhinorrhea Eyes: No Swelling, No Redness Cardiovascular : No Chest Pain, No SOB, NoEdema Respiratory : No Cough, No Sputum, No Wheezing Gastrointestinal : Positive Nausea, Positive Vomiting, no Diarrhea, no abdominal Pain, No Hematochezia, No Melena Genitourinary : No Dysuria, No Urinary Frequency, No Hematuria, No Urgency Musculoskeletal : No joint pain, No Myalgias, No Joint Swelling Skin : No Skin Lesions, No rash Neuro : No Weakness, No Numbness, No Dizziness, No Headache Psych : No Anxiety/Panic, No Depression Heme/Lymph: No Bruising, No Lymphadenopathy Endocrine : No Polyuria, No Polydipsia All other systems reviewed and are negative. Gastrointestinal: Gastrointestinal: Reports nausea PMFSH Past Medical History Attestation statement: The following information was validated with the patient. Medical History No known health problems Social History Social History Alcohol intake: never Patient Tobacco Use Status: Never used Tobacco Substance Use Type: Marijuana Advance Directives: No Advance Directives Information Provided: Yes Physical Exam Vital Signs: Vital Signs: Last Vital Signs Temp 98.1 F 11/22/21 04:59 Pulse 94 11/22/21 04:59 Resp 22 H 11/22/21 04:59 BP 129/78 11/22/21 04:59 Pulse Ox 97 11/22/21 04:59 BMI result Body Mass Index 20.7 Appearance: Alert. Oriented X3. No acute distress. Eyes: Pupils equal, round and reactive to light. ENT: Pharynx normal. MMM Neck: Normal inspection. Neck supple. CVS: Normal heart rate and rhythm. Pulses normal. Respiratory: No respiratory distress. Breath sounds normal. Abdomen: Soft and non-tender. Skin: Skin warm and dry. Normal skin color. Normal skin turgor. Extremities: No lower extremity edema. No calf ttp Neuro: Oriented X 3. No motor deficit. No sensory deficit. MDM - Nausea/Vomiting/Diarrhea MDM Narrative Medical decision making narrative: 21 yo male otherwise healthy here with c/o vomiting x 3 feels much better after zofran no abdominal pain or diarrhea - labs wnl, abdomen is soft and nontender - wants to go home now has zofran to go home with in the pharmacy. Doubt appendicitis/GB pathology at this time. No signs of clinical dehydration. Lab Data Result diagrams: 11/22/21 05:05 11/22/21 05:05 Labs: Lab Results 11/22/21 11/22/21 11/22/21 Range/Units 05:00 05:05 05:05 WBC 7.3 (4.8-10.8) X10*3/uL RBC 5.45 (4.60-5.80) X10*6/uL Hgb 16.1 (14.0-18.0) g/dl Hct 47.5 (42.0-52.0) % MCV 87.2 (80.0-98.0) fL MCH 29.5 (27.0-33.0) pg MCHC 33.9 (31.0-36.0) g/dl RDW 12.3 (11.0-16.0) % Plt Count 171 (160-400) X10*3/uL MPV 10.1 (9.4-12.4) fL Immature Gran % (Auto) 0.3 (0.0-0.4) % Neut % (Auto) 75.0 H (45-73) % Lymph % (Auto) 12.2 L (20-40) % [place] % (Auto) 8.1 (2-11) % Eos % (Auto) 4.0 (0-4) % Baso % (Auto) 0.4 (0-2) % Lymph # (Auto) 0.9 L (1.2-4.9) X10*3/uL [place] # (Auto) 0.6 (0.1-1.2) X10*3/uL Eos # (Auto) 0.3 (0.0-0.4) X10*3/uL Baso # (Auto) 0.0 (0.0-0.2) X10*3/uL Abs Immat Gran (auto) 0.02 (0.00-0.03) X10*3/uL Absolute Neuts (auto) 5.5 (2.0-8.3) x10*3/uL Absolute Nucleated RBC 0.000 (0.0-0.012) X10*3/uL Nucleated RBC % (auto) 0.0 (0.0-0.2) /100WBC Sodium 140 (135-145) mmol/L Potassium 3.8 (3.3-5.1) mmol/L Chloride 104 (96-108) mmol/L Carbon Dioxide 28 (22-29) mmol/L Anion Gap 12 (12-20) BUN 13 (9-16) mg/dL Creatinine 1.26 (0.5-1.4) mg/dL Estim Creat Clear Calc 92.7 Estimated GFR > 60 Random Glucose 89 (60-115) mg/dL Calcium 9.8 (8.4-10.2) mg/dL Total Bilirubin 1.6 H (0.0-1.0) mg/dL Direct Bilirubin 0.7 H (0.0-0.5) mg/dL AST 17 (5-37) U/L ALT 21 (0-40) U/L Alkaline Phosphatase 59 (39-117) U/L Total Protein 7.2 (6.5-8.0) g/dL Albumin 4.8 (3.5-5.0) g/dL Lipase 31 (8-78) U/L COVID-19 ([facility]) Negative (Negative) COVID-19 Clin Com See Note Discharge Plan Discharge Clinical Impression: Vomiting Qualifiers: Vomiting type: unspecified Nausea presence: with nausea Qualified Code(s): R11.2 - Nausea with vomiting, unspecified Patient Disposition: Home, Self-Care Instructions: Acute Nausea and Vomiting (ED) Additional Instructions: return to ED for any worsening symptoms or concerns COVID NEGATIVE Prescriptions: New ondansetron 4 mg tablet,disintegrating 4 mg PO Q8H PRN (Reason: nausea and vomiting) Qty: 20 RF: 0 No Action ondansetron HCl [Zofran] 4 mg tablet 4 mg PO Q8H PRN (Reason: nausea and vomiting) Qty: 10 RF: 0 amoxicillin 250 mg/5 mL suspension for reconstitution 500 mg PO BID Qty: 150 RF: 0 oxycodone 5 mg tablet 5 mg PO BID PRN (Reason: pain) Qty: 5 RF: 0 Stand Alone Forms: Work/School Release
[2021-11-22 06:52] VITALS: BP 122/72; PULSE 73; RESP 17; O2SAT 98
[2021-11-22] MEDS: Ondansetron ODT 4 MG TAB.RAPDIS TRANSLINGU ×2 (06:53)
== END 2021-11-22 06:58 | disposition home or self-care (01) ==
PROVIDERS: Emergency Provider Emergency Medicine
DX: R11.2 Nausea with vomiting, unspecified (principal); Z20.822 Contact with and (suspected) exposure to COVID-19
CPT/HCPCS: 36415; 80053; 82248; 83690; 85025; 87635; 99283

== ENCOUNTER 2021-11-23 03:39 | Emergency (ER) | payer OTHER, SELFPAY ==
[2021-11-23 03:56] VITALS: BP 146/65; PULSE 88; RESP 20; TEMP 36.5; O2SAT 97; BMI 19.8
== END 2021-11-23 09:57 | disposition left against medical advice (07) ==
PROVIDERS: Emergency Provider Emergency Medicine
DX: R10.9 Unspecified abdominal pain (principal)
CPT/HCPCS: 99281; 99282

== ENCOUNTER 2021-12-06 04:25 | Emergency (ER) | payer OTHER, SELFPAY ==
[2021-12-06 04:30] VITALS: BP 129/77; PULSE 65; RESP 18; TEMP 36.4; O2SAT 100; BMI 19.8
--- NOTE | 2021-12-06 06:11 | ED.DENTAL ---
HPI - Dental/Oral General Chief complaint: Dental/Oral Stated complaint: dental pain Source: patient Mode of arrival: ambulatory History of Present Illness HPI Narrative: 21-year-old male who presents with dental pain and presented here last week for same pain but had left without being seen. He has not made a dental appointment because he had work and now reports dental pain that is 4/10 and denies any associated fever, chills, difficulty breathing or swallowing. Related Data Previous Rx's Medication Instructions Recorded ondansetron HCl 4 mg tablet 4 mg PO Q8H PRN #10 tab 05/26/21 (Zofran) amoxicillin 250 mg/5 mL oral 500 mg (10 mL) PO BID #150 ml 10/14/21 suspension oxycodone 5 mg tablet 5 mg PO BID PRN #5 tab 10/14/21 ondansetron 4 mg disintegrating 4 mg PO Q8H PRN #20 tab 11/22/21 tablet Allergies Allergy/AdvReac Type Severity Reaction Status Date / Time pistachio nut [PISTACHIO] Allergy Intermediate VOMITS Verified 10/14/21 20:25 THROAT SWELLING DIFFICULTY BREATHING sunflower seed Allergy Unknown VOMITING Verified 10/14/21 20:25 [SUNFLOWER SEED] peanut Allergy Anaphylaxis Verified 10/14/21 20:25 Review of Systems Review of Systems: Pertinent positives and negatives as stated in HPI 10 point review of systems is otherwise negative. PMFSH Past Medical History Source: nursing notes reviewed Medical History No known health problems Social History Social History Alcohol intake: never Patient Tobacco Use Status: Never used Tobacco Substance Use Type: Marijuana Advance Directives: No Advance Directives Information Provided: Yes Physical Exam Vital Signs: Vital Signs: Last Vital Signs Temp 97.5 F 12/06/21 04:30 Pulse 65 12/06/21 04:30 Resp 18 12/06/21 04:30 BP 129/77 12/06/21 04:30 Pulse Ox 100 12/06/21 04:30 BMI result Body Mass Index 19.8 VITAL SIGNS: Reviewed. GENERAL: Well developed, well nourished, in no acute distress. Remaining exam unable to complete and then patient eloped. Course Course Course Narrative: 21-year-old male with history and clinical presentation consistent with dental pain and no evidence of trismus, difficulty swallowing or breathing. I was then informed that patient eloped. Discharge Plan Discharge Clinical Impression: Toothache Patient Disposition: Elopement Prescriptions: No Action ondansetron HCl [Zofran] 4 mg tablet 4 mg PO Q8H PRN (Reason: nausea and vomiting) Qty: 10 RF: 0 amoxicillin 250 mg/5 mL suspension for reconstitution 500 mg PO BID Qty: 150 RF: 0 oxycodone 5 mg tablet 5 mg PO BID PRN (Reason: pain) Qty: 5 RF: 0 ondansetron 4 mg tablet,disintegrating 4 mg PO Q8H PRN (Reason: nausea and vomiting) Qty: 20 RF: 0 Discharge Date/Time: 12/06/21 06:06
== END 2021-12-06 06:06 | disposition left against medical advice (07) ==
PROVIDERS: Emergency Provider Student in an Organized Health Care Education/Training Program
DX: K08.89 Other specified disorders of teeth and supporting structures (principal); F12.90 Cannabis use, unspecified, uncomplicated; Z79.899 Other long term (current) drug therapy
CPT/HCPCS: 99281; 99282

== ENCOUNTER 2022-08-08 19:09 | Emergency (ER) | payer OTHER, SELFPAY ==
[2022-08-08 20:33] VITALS: BP 126/85; PULSE 70; RESP 16; TEMP 36.9; O2SAT 98; BMI 21.2
== END 2022-08-09 03:05 | disposition left against medical advice (07) ==
LOC: HO.ED 08-09 03:06
PROVIDERS: Emergency Provider Emergency Medicine
DX: K08.89 Other specified disorders of teeth and supporting structures (principal); F12.90 Cannabis use, unspecified, uncomplicated
CPT/HCPCS: 99281

== ENCOUNTER 2022-09-09 19:08 | Emergency (ER) | payer OTHER, SELFPAY ==
[2022-09-09 19:49] VITALS: BP 157/90; PULSE 64; RESP 18; TEMP 36.7; O2SAT 99; BMI 21.1
--- OUTSIDE RECORDS SUMMARY | 2022-09-09 20:49 | XMS_ITS | Continuity of Care Document ---
:2000 Author Organization [facility] Address [address] [place] [address]- Care Team Providers Name Role Phone Ridge HUMPHRIES, Jagdish Steiner Primary Care Physician Encounter [facility] Date(s): 02/17/21 - 03/19/21 [facility] [address] [place] [address]- Attending Physician: Katarina Carney Admitting Physician: Katarina Carney Referring Physician: Admtr, Ar8 Allergies, Adverse Reactions, Alerts Substance Reaction Severity Status Other Food Allergy pistachios Active Medications acetaminophen-codeine 300 mg-15 mg oral tablet 1 tablet, By Mouth, Every 4 hours, PRN Pain , Moderate, # 30 tablet, 0 Refills, Tablet Start Date: 11/05/09 Stop Date: 11/12/09 Status: Ordered
== END 2022-09-09 20:51 | disposition left against medical advice (07) ==
PROVIDERS: Emergency Provider Emergency Medicine
DX: K08.89 Other specified disorders of teeth and supporting structures (principal)
CPT/HCPCS: 99281

== ENCOUNTER 2022-10-26 02:43 | Emergency (ER) | payer OTHER, SELFPAY ==
[2022-10-26 02:52] VITALS: BP 125/80; PULSE 97; RESP 16; TEMP 37.4; O2SAT 98; BMI 21.1
--- NOTE | 2022-10-26 02:54 | ED_ITS ---
HPI - URI/Sore Throat General Chief Complaint: Upper Respiratory Symptoms Stated Complaint: covid symptoms Time Seen by Provider: 10/26/22 02:54 Source: patient Mode of arrival: ambulatory Limitations: no limitations History of Present Illness HPI Narrative: Patient comes to the emergency room complaining of dry cough since yesterday. Patient denies fever or chills. No chest pain or shortness of breath. No nish sea vomiting or diarrhea Related Data Previous Rx's Medication Instructions Recorded ondansetron HCl 4 mg tablet 4 mg PO Q8H PRN nausea and 05/26/21 (Zofran) vomiting #10 tabs amoxicillin 250 mg/5 mL oral 500 mg (10 mL) PO BID #150 mL 10/14/21 suspension oxycodone 5 mg tablet 5 mg PO BID PRN pain #5 tabs 10/14/21 ondansetron 4 mg disintegrating 4 mg PO Q8H PRN nausea and 11/22/21 tablet vomiting #20 tabs ibuprofen 400 mg tablet 400 mg PO TID PRN fever or pain 10/26/22 #20 tabs nirmatrelvir 300 mg (150 mg See Rx Instructions PO .COMPLEX 10/26/22 x2)-ritonavir 100 mg tablet,dose #30 ea pack(EUA) (Paxlovid) Allergies Allergy/AdvReac Type Severity Reaction Status Date / Time pistachio nut [PISTACHIO] Allergy Intermediate VOMITS Verified 10/26/22 02:54 THROAT SWELLING DIFFICULTY BREATHING sunflower seed Allergy Unknown VOMITING Verified 10/26/22 02:54 [SUNFLOWER SEED] peanut Allergy Anaphylaxis Verified 10/26/22 02:54 Review of Systems Review of Systems: Constitutional : No Weight loss, No Fever, No Chills, No Night Sweats, No Fatigue, No Malaise ENT/Mouth : No Hearing loss, No Ear Pain, No Nasal Congestion, No Sinus Pain, No Hoarseness, complaining of mild sore throat, No Rhinorrhea, No Swallowing Difficulty Eyes: No Eye Pain, No Swelling, No Redness, No Foreign Body, No Discharge, No Vision Changes Cardiovascular : No Chest Pain, No SOB, No Dyspnea on Exertion, No Orthopnea, No Edema, No Palpitations Respiratory : Complaining of dry Cough, No Sputum, No Wheezing, No Smoke Exposure, No Dyspnea Gastrointestinal : No Nausea, No Vomiting, No Diarrhea, No Constipation, No abdominal Pain, No Hematochezia, No Melena Genitourinary : no irregular bleeding, No Dysuria, No Urinary Frequency, No Hematuria, No Urinary Incontinence, No Urgency, No Flank Pain, No Urinary Flow Changes, No Hesitancy Musculoskeletal : No joint pain, No Myalgias, No Joint Swelling Skin : No Skin Lesions, No rash Neuro : No Weakness, No Numbness, No Paresthesias, No Loss of Consciousness, No Dizziness, No Headache Psych : No Anxiety/Panic, No Depression, No SI/HI/AH/VH, No Social Issues, Heme/Lymph: No Bruising, No Bleeding,No Lymphadenopathy Endocrine : No Polyuria, No Polydipsia, No Temperature Intolerance [facility] Past Medical History Medical History No known health problems Social History Social History Alcohol intake: never Patient Tobacco Use Status: Never used Tobacco Substance Use Type: Marijuana Physical Exam Vital Signs: Vital Signs: Last Vital Signs Temp 99.3 F 10/26/22 02:52 Pulse 97 10/26/22 02:52 Resp 16 10/26/22 02:52 BP 125/80 10/26/22 02:52 Pulse Ox 98 10/26/22 02:52 O2 Del Method 10/26/22 02:52 BMI result Body Mass Index 21.1 Const: Other: Appearance: Alert. Oriented X3. No acute distress. Well-appearing Eyes: Pupils equal, round and reactive to light. ENT: Pharynx normal. No exudates, no abscesses Neck: Normal inspection. Neck supple. No lymph nodes noted. No crepitus CVS: Normal heart rate and rhythm. Pulses normal. Normal S1 and S2 Respiratory: No respiratory distress. Breath sounds normal. No Wheezing. No rales Abdomen: Soft and nontender. No rigidity. No distention. Skin: Skin warm and dry. Normal skin color. Normal skin turgor. Extremities: No lower extremity edema. No Lacerations. No Rash Neuro: Oriented X 3. No motor deficit. No sensory deficit. Moving all extremities. No slurred speech. CN 2 through 12 grossly intact Psych: calm, cooperative, normal affect Course Course Course Narrative: COVID test and influenza tests pending Patient tested positive for COVID-19. His oxygen saturation within normal limits, no shortness of breath. MDM - URI/Sore Throat Lab Data Labs: Lab Results 10/26/22 Range/Units 02:57 COVID-19 ([facility]) Positive A (Negative) COVID-19 Clin Com See Note Discharge Plan Discharge Clinical Impression: COVID-19 Patient Disposition: Home, Self-Care Instructions: COVID-19 (Coronavirus Disease 2019) (ED) Additional Instructions: Please follow-up with your primary care physician tomorrow. If you have any worsening or new symptoms, please return to the emergency room or call 911 Prescriptions: New Paxlovid (EUA) 300 mg (150 mg x 2)-100 mg tablets,dose pack See Rx Instructions .ROUTE .COMPLEX Qty: 30 0RF Rx Instructions: take TWO 150 mg tablets of nirmatrelvir with ONE 100 mg tablet of ritonavir twice daily for 5 days ibuprofen 400 mg tablet 400 mg PO TID PRN (Reason: fever or pain) Qty: 20 0RF No Action ondansetron HCl [Zofran] 4 mg tablet 4 mg PO Q8H PRN (Reason: nausea and vomiting) Qty: 10 0RF amoxicillin 250 mg/5 mL suspension for reconstitution 500 mg PO BID Qty: 150 0RF oxycodone 5 mg tablet 5 mg PO BID PRN (Reason: pain) Qty: 5 0RF ondansetron 4 mg tablet,disintegrating 4 mg PO Q8H PRN (Reason: nausea and vomiting) Qty: 20 0RF Stand Alone Forms: Work/School Release
[2022-10-26 03:09] LABS: COVID-19 Test Positive (Negative); IDNOW Serial# 55D5AD1C
[2022-10-26 03:16] LABS: IDNOW Serial# 9DB6401D; Influenza A Negative (Negative); Influenza B2 Negative (Negative)
== END 2022-10-26 03:30 | disposition home or self-care (01) ==
LOC: HO.ED 03:24
PROVIDERS: Emergency Provider Emergency Medicine
DX: U07.1 COVID-19 (principal); R05.9 Cough, unspecified; Z79.899 Other long term (current) drug therapy
CPT/HCPCS: 87502; 87635; 99283

== ENCOUNTER 2022-10-29 10:41 | Outpatient (REF) | payer OTHER, SELFPAY ==
[2022-10-29 11:23] LABS: COVID-19 Test Positive (Negative); IDNOW Serial# 16C4AD1C
== END 2022-10-29 10:42 | disposition home or self-care (01) ==
LOC: HO.LAB 10:41
PROVIDERS: Visit Provider Internal Medicine
DX: Z20.822 Contact with and (suspected) exposure to COVID-19 (principal)
CPT/HCPCS: 36415; 80053; 80061; 81001; 84443; 85025; 87635; C9803

== ENCOUNTER 2023-02-08 12:24 | Emergency (ER) | payer OTHER, SELFPAY ==
[2023-02-08 13:06] VITALS: BP 155/100; PULSE 71; RESP 18; TEMP 36.7; O2SAT 98; BMI 21.1
== END 2023-02-08 18:12 | disposition left against medical advice (07) ==
PROVIDERS: Emergency Provider Emergency Medicine
DX: K08.89 Other specified disorders of teeth and supporting structures (principal); K05.10 Chronic gingivitis, plaque induced
CPT/HCPCS: 99281

== ENCOUNTER 2023-05-29 03:49 | Emergency (ER) | payer OTHER, SELFPAY ==
[2023-05-29 03:58] VITALS: BP 150/102; PULSE 64; RESP 18; TEMP 37; O2SAT 99; BMI 20.4
--- NOTE | 2023-05-29 05:08 | ED.DENTAL ---
HPI - Dental/Oral General Chief complaint: Dental/Oral Stated complaint: Dental pain Time Seen by Provider: 05/29/23 04:57 Source: patient Mode of arrival: ambulatory Limitations: no limitations History of Present Illness HPI Narrative: 23-year-old male presents with acute dental pain. Pain is in left lower molar area. Pain started acutely this morning. The pain does not radiate. The pain is severe. There has been prior treatment with acetaminophen but no improvement. Patient had a recent tooth pulled by his dentist several weeks ago. He has had no facial swelling. There is no clear relieving or exacerbating features. Pain is sharp. There is also sensitive to heat cold. Related Data Previous Rx's Medication Instructions Recorded amoxicillin 400 mg/5 mL oral 800 mg (10 mL) PO TID #300 mL 02/08/23 suspension meloxicam 15 mg tablet 15 mg PO DAILY #14 tabs 02/08/23 amoxicillin 400 mg/5 mL oral 800 mg (10 mL) PO BID 10 days #200 05/29/23 suspension mL ibuprofen 100 mg/5 mL oral 600 mg (30 mL) PO Q6H PRN fever or 05/29/23 suspension (Children's Ibuprofen) pain #500 mL Allergies Allergy/AdvReac Type Severity Reaction Status Date / Time pistachio nut [PISTACHIO] Allergy Intermediate VOMITS Verified 02/08/23 13:40 THROAT SWELLING DIFFICULTY BREATHING sunflower seed Allergy Unknown VOMITING Verified 02/08/23 13:40 [SUNFLOWER SEED] peanut Allergy Anaphylaxis Verified 02/08/23 13:40 Review of Systems Review of Systems: CONSTITUTIONAL: Denies weight loss, fever and chills. HEENT: Denies changes in vision and hearing. RESPIRATORY: Denies SOB and cough. CV: Denies palpitations no CP. GI: Denies abdominal pain, nausea, vomiting and diarrhea. : Denies dysuria and urinary frequency. MSK: Denies myalgia and joint pain. SKIN: Denies rash and pruritus. NEUROLOGICAL: Denies headache and syncope. PSYCHIATRIC: Denies recent changes in mood. Denies anxiety and depression. All other ROS are negative unless in HPI PMFSH Past Medical History Medical History No known health problems Social History Social History Alcohol intake: never Patient Tobacco Use Status: Never used Tobacco Substance Use Type: Marijuana Advance Directives: No Advance Directives Information Provided: No Physical Exam Vital Signs: Vital Signs: Last Vital Signs Temp 98.6 F 05/29/23 03:58 Pulse 64 05/29/23 03:58 Resp 18 05/29/23 03:58 BP 150/102 H 05/29/23 03:58 Pulse Ox 99 05/29/23 03:58 O2 Del Method Room Air 05/29/23 03:58 BMI result Body Mass Index 20.4 GEN: Well developed, no acute distress, alert, oriented HEENT: Normocephalic, atraumatic, normal external ears, nose appears normal Eyes: Normal to appearance Neck: Supple, no lymphadenopathy Respiratory: Talks in complete sentences, no respiratory distress Extremities: No clubbing cyanosis or edema Neurologic: No focal neurologic deficits, cranial nerves 2-12 intact, gait normal Skin: No rash HEENT: Teeth image: 1. Large dental chrissie, no gingival erythema purulent drainage or fluctuance surface Course Course Course Narrative: The workup is complete. Patient likely has a dental infection. Will start patient on antibiotics and NSAIDs. Patient can follow up with this week with his dentist. Medical Decision Making Medical Decision Making MDM Narrative: Patient presents with acute dental pain. Differential diagnosis includes dental chrissie, a periapical abscess, dental infection, dental fracture. I suspect he has a periapical abscess. Will start patient on antibiotics and anti-inflammatory pain medications. Patient follow-up with his dentist within 2-3 days. Prescription Management I considered prescription management with: Pain Medication and Antibiotic Discharge Plan Discharge Clinical Impression: Dental caries, Dental abscess Patient Disposition: Home, Self-Care Instructions: Toothache (ED) Prescriptions: New amoxicillin 400 mg/5 mL suspension for reconstitution 800 mg PO BID 10 Days Qty: 200 0RF ibuprofen [Children's Ibuprofen] 100 mg/5 mL suspension 600 mg PO Q6H PRN (Reason: fever or pain) Qty: 500 0RF No Action meloxicam 15 mg tablet 15 mg PO DAILY Qty: 14 0RF amoxicillin 400 mg/5 mL suspension for reconstitution 800 mg PO TID Qty: 300 0RF Referrals: [facility] [Outside]
[2023-05-29 05:36] VITALS: BP 147/97; PULSE 62; RESP 14; TEMP 36.6; O2SAT 100
--- NOTE | 2023-05-29 05:39 | PC.NURSE ---
pt calm and cooperative. pt girlfriend at bedside. vss. pt ambulatory at discharge. pt provided with discharge plan. pt verbalized understanding of discharge plan
== END 2023-05-29 05:40 | disposition home or self-care (01) ==
PROVIDERS: Emergency Provider Emergency Medicine; PCP Internal Medicine
DX: K08.89 Other specified disorders of teeth and supporting structures (principal); K02.9 Dental caries, unspecified; K04.7 Periapical abscess without sinus
CPT/HCPCS: 99283; 99284

== ENCOUNTER 2023-06-01 08:51 | Emergency (ER) | payer OTHER, SELFPAY ==
[2023-06-01 09:09] VITALS: BP 132/72; PULSE 70; RESP 18; TEMP 36.5; O2SAT 96; BMI 19.8
--- NOTE | 2023-06-01 09:56 | ED.DENTAL ---
HPI - Dental/Oral General Chief complaint: Dental/Oral Stated complaint: Dental Pain Time Seen by Provider: 06/01/23 09:13 Source: patient Mode of arrival: ambulatory Limitations: no limitations History of Present Illness HPI Narrative: 23-year-old male presents to the emergency department complaints of left-sided lower dental pain around the molar region. Patient reports he was seen here diagnosis the small dental abscess which has been improving with antibiotics. Patient has been taking ibuprofen for pain however he reports pain is severe and he would like something stronger for pain. He reports the main reason he came in today is for something stronger for pain/pain control. Patient tells me that he is scheduled to see his dentist tomorrow and he may be having a root canal. Patient denies fevers, chills, changes in voice, difficulty breathing, trouble swallowing, nausea, vomiting, abdominal pain, chest pain, shortness of breath. He does emphasize the size of the abscess is improving. Related Data Previous Rx's Medication Instructions Recorded amoxicillin 400 mg/5 mL oral 800 mg (10 mL) PO TID #300 mL 02/08/23 suspension meloxicam 15 mg tablet 15 mg PO DAILY #14 tabs 02/08/23 amoxicillin 400 mg/5 mL oral 800 mg (10 mL) PO BID 10 days #200 05/29/23 suspension mL ibuprofen 100 mg/5 mL oral 600 mg (30 mL) PO Q6H PRN fever or 05/29/23 suspension (Children's Ibuprofen) pain #500 mL ketorolac 10 mg tablet 10 mg PO TID PRN pain 5 days #15 06/01/23 tabs Allergies Allergy/AdvReac Type Severity Reaction Status Date / Time pistachio nut [PISTACHIO] Allergy Intermediate VOMITS Verified 06/01/23 09:12 THROAT SWELLING DIFFICULTY BREATHING sunflower seed Allergy Unknown VOMITING Verified 06/01/23 09:12 [SUNFLOWER SEED] peanut Allergy Anaphylaxis Verified 06/01/23 09:12 Review of Systems Review of Systems: Constitutional : No Weight loss, No Fever, No Chills, No Fatigue, No Malaise ENT/Mouth : No sore throat, No Rhinorrhea, + tooth pain Eyes: No Eye Pain, No Swelling, No Redness Cardiovascular : No Chest Pain, No SOB, No Dyspnea on Exertion, No Orthopnea, No Edema, No Palpitations Respiratory : No Cough, No Sputum, No Wheezing Gastrointestinal : No Nausea, No Vomiting, No Diarrhea, No Constipation, No abdominal Pain, No Hematochezia, No Melena Genitourinary : No Dysuria, No Urinary Frequency, No Hematuria, Musculoskeletal : No joint pain, No Myalgias, No Joint Swelling Skin : No Skin Lesions, No rash Neuro : No Weakness, No Numbness, No Dizziness, No Headache Psych : No Anxiety/Panic, No Depression All other systems reviewed and are negative Yes all other systems are reviewed and are negative [facility] Past Medical History Attestation statement: The following information was validated with the patient. Source: old records reviewed and nursing notes reviewed Medical History No known health problems Social History Social History Alcohol intake: never Patient Tobacco Use Status: Never used Tobacco Substance Use Type: Marijuana Advance Directives: No Advance Directives Information Provided: Yes Physical Exam Vital Signs: Vital Signs: Last Vital Signs Temp 97.7 F 06/01/23 09:09 Pulse 70 06/01/23 09:09 Resp 18 06/01/23 09:09 BP 132/72 06/01/23 09:09 Pulse Ox 96 06/01/23 09:09 O2 Del Method Room Air 06/01/23 09:09 BMI result Body Mass Index 19.8 vss Appearance: Alert.? Oriented X3.? No acute distress.? Head: Normocephalic, atraumatic, no step-offs or deformities Eyes: Pupils equal, round and reactive to light.? ENT: Pharynx normal.?No mastoid tenderness. + TTP overlying 18th tooth ( left lower) w/ very small abscess noted no gingival abscess. Neck: Normal inspection.? Neck supple.? CVS: Normal heart rate and rhythm.? Pulses normal.? Respiratory: No respiratory distress.? Breath sounds normal.? Abdomen: Soft and nontender.? Skin: Skin warm and dry.? Normal skin color.? Normal skin turgor.? Extremities: No lower extremity edema.? No calf ttp. 5/5 strength to bilateral upper and lower extremities Neuro: Oriented X 3.? No motor deficit.? No sensory deficit. CN 2-12 intact Course Reevaluation(s) Reevaluation #1: Got tordol here in the department and tollerated it well. Educated patient on diagnosis and treatment plan, answered all question, patient verbalizes understanding. At this time patient will be discharged home, advised to return with new or worsening symptoms. Educated on worrisome signs and symptoms and when to return. At this time I feel comfortable discharge home. Time: 10:09 Medical Decision Making Medical Decision Making MDM Narrative: 23 year old male presents w/ dental pain was recently seen here for dental abscess reprots improvement but pain is severe PE w/ TTP overlying 18th tooth ( left lower) w/ very small abscess noted no gingival abscess. This is likely dental pain d/t inflammation from small abscess, very small improving dental abscess ( per patient) . No signs of threatened airway, tracking, mastoiditis, sepsis, necrotizing infection. No signs of Toi's. Plan- DC w/ toradol patient to see dentist tomorrow Differential Diagnosis Differential Diagnoses: The differential diagnosis associated with the presentation includes This is likely dental pain d/t inflammation from small abscess, very small improving dental abscess ( per patient) . No signs of threatened airway, tracking, mastoiditis, sepsis, necrotizing infection. No signs of Toi's. Admission/Observation Consideration of admission/observation: Escalation of care including admission/observation considered No indication Tests considered The following testing was considered but not selected: No need for imaging at this time improving abscess Core Measures AMI core measures followed: Yes Measure exclusions: not indicated Critical Care Time Critical Care Time Critical Care Time: No Discharge Plan Discharge Clinical Impression: Pain, dental Patient Disposition: Home, Self-Care Instructions: Toothache (ED) Additional Instructions: Take your medications as prescribed. If you were prescribed antibiotics today, it is important that you take your medication to their entirety, do not skip any doses, do not finish them early. Follow-up with your primary care provider this week. Return to the emergency department with new or worsening symptoms. Such as fevers, chills, chest pain, shortness of breath, nausea, vomiting, dizziness, headache, vision changes, lethargy In case of emergency call 911 Please go to the follow up apt scheduled with your dentist chi. Toradol has been sent to your pharmacy, you tolerated this well in the department. Please take this as prescribed do not take this with ibuprofen, or other NSAIDs, do not mix this with alcohol. Side effects of this medication including increased risk for bleeding and possible kidney injury. Prescriptions: New ketorolac 10 mg tablet 10 mg PO TID PRN (Reason: pain) 5 Days Qty: 15 0RF No Action amoxicillin 400 mg/5 mL suspension for reconstitution 800 mg PO BID 10 Days Qty: 200 0RF ibuprofen [Children's Ibuprofen] 100 mg/5 mL suspension 600 mg PO Q6H PRN (Reason: fever or pain) Qty: 500 0RF meloxicam 15 mg tablet 15 mg PO DAILY Qty: 14 0RF amoxicillin 400 mg/5 mL suspension for reconstitution 800 mg PO TID Qty: 300 0RF Referrals: Rober Grande MD [Primary Care Provider] - 2 days Stand Alone Forms: Work/School Release
== END 2023-06-01 10:14 | disposition home or self-care (01) ==
PROVIDERS: Emergency Provider Emergency Medicine; PCP Internal Medicine
DX: K08.89 Other specified disorders of teeth and supporting structures (principal)
CPT/HCPCS: 96372; 99283; 99284; J1885

== ENCOUNTER 2023-07-27 23:39 | Emergency (ER) | payer OTHER, SELFPAY ==
[2023-07-27 23:42] VITALS: BP 131/82; PULSE 77; RESP 18; TEMP 36.8; O2SAT 99; BMI 21.1
--- NOTE | 2023-07-28 00:58 | ED_ITS ---
HPI - Dental/Oral General Chief complaint: Dental/Oral Stated complaint: Toothache Time Seen by Provider: 07/28/23 00:25 Source: patient Mode of arrival: ambulatory Limitations: no limitations History of Present Illness HPI Narrative: Patient is a 23-year-old male presents emergency department for evaluation of dental pain to the left lower dental region time 3 months. States he is awaiting an appointment for a root canal/filling that is scheduled for 08/16/2023. He states that his pain has been severe today and awoken from his sleep. He attempted Tylenol without any improvement. He states he was evaluated approximately 1 month ago in the emergency department and received a prescription for ketorolac which greatly improved his pain. He denies fevers, chills, swelling or drainage from the gums, foul taste in the mouth, fevers, chills, neck pain, chest pain, shortness of breath. Related Data Previous Rx's Medication Instructions Recorded amoxicillin 400 mg/5 mL oral 800 mg (10 mL) PO TID #300 mL 02/08/23 suspension meloxicam 15 mg tablet 15 mg PO DAILY #14 tabs 02/08/23 amoxicillin 400 mg/5 mL oral 800 mg (10 mL) PO BID 10 days #200 05/29/23 suspension mL ibuprofen 100 mg/5 mL oral 600 mg (30 mL) PO Q6H PRN fever or 05/29/23 suspension (Children's Ibuprofen) pain #500 mL ketorolac 10 mg tablet 10 mg PO TID PRN pain 5 days #15 06/01/23 tabs ketorolac 10 mg tablet 10 mg PO TID PRN pain 5 days #15 07/28/23 tabs Allergies Allergy/AdvReac Type Severity Reaction Status Date / Time pistachio nut [PISTACHIO] Allergy Intermediate VOMITS Verified 07/27/23 23:41 THROAT SWELLING DIFFICULTY BREATHING sunflower seed Allergy Unknown VOMITING Verified 07/27/23 23:41 [SUNFLOWER SEED] peanut Allergy Anaphylaxis Verified 07/27/23 23:41 Review of Systems Review of Systems: Constitutional : No Fever, No Chills, No changes in PO intake, No difficulty speaking,? no recent dental procedure, no heat or cold intolerance while eating, no recent face trauma, ENT/Mouth : No swallowing difficulty, no change in voice, No jaw pain, No facial swelling, no drooling, no trismus, no bleeding, no throat swelling, no lacerations, no tongue swelling, gum swelling, Eyes: No Eye Pain, No periorbital Swelling Cardiovascular : No Chest Pain, No SOB Respiratory : No Cough, No Sputum, No Wheezing, No Smoke Exposure, No Dyspnea Gastrointestinal : No Nausea, No Vomiting, No Diarrhea Genitourinary : No Dysuria Musculoskeletal : No Myalgias Skin : No rash, no facial swelling or redness, Neuro : No Weakness, No Numbness, No Headache Yes all other systems are reviewed and are negative [facility] Past Medical History Attestation statement: The following information was validated with the patient. Source: old records reviewed Medical History No known health problems Social History Social History Alcohol intake: never Patient Tobacco Use Status: Never used Tobacco Substance Use Type: Marijuana Advance Directives: No Advance Directives Information Provided: No Physical Exam Vital Signs: Vital Signs: Last Vital Signs Temp 98.3 F 07/27/23 23:42 Pulse 77 07/27/23 23:42 Resp 18 07/27/23 23:42 BP 131/82 07/27/23 23:42 Pulse Ox 99 07/27/23 23:42 O2 Del Method Room Air 07/27/23 23:42 BMI result Body Mass Index 21.1 Appearance: Alert. Oriented X3. No acute distress. Head: Normal external exam. Normocephalic. Atraumatic. Eyes: PERRLA. EOMI. Conjunctiva and sclera normal. Eyelids normal. ENT: EAC normal. TM's Normal. Pharynx normal. Uvula midline. Moist mucous membranes.? ?No trismus noted.? No drooling noted.? No muffled voice noted. Dentition:? Patient with poor dentition throughout with multiple old fractured teeth with multiple dental caries.? No Gingival erythema.? No fluctuance.? Not consistent with peritonsillar abscess. Not consistent with dental abscess.? No salivary duct obstruction noted. Neck: Normal inspection. Neck supple. No adenopathy.. No meningeal signs. No neck mass noted.? CVS: Normal heart rate and rhythm. Heart sound normal. No murmurs noted. Pulses normal throughout. Respiratory: No respiratory distress. LSCTA. Back:? Full range of motion noted. Skin: Skin warm and dry.? Normal skin color.? Normal skin turgor. No rash es/lesions/lacerations noted. Extremities: Extremities exhibit normal range of motion.? Neuro: Oriented X 3.? No motor deficit.? No sensory deficit.? Medical Decision Making Medical Decision Making MDM Narrative: Patient is a 23-year-old male who presents to the emergency department for evaluation of persistent dental pain. Upon examination pain is localized to 18th tooth with tenderness upon palpation surrounding. there is no facial swelling, gingival erythema, or areas of fluctuance to suggest an abscess. Not consistent with Toi's angina. No airway compromise. Discussed importance of follow-up with dental provider as scheduled for further management. Patient received ketorolac IM in the emergency department tolerated well, sent prescription for oral ketorolac to his pharmacy, advised avoidance of additional OTC NSAIDs while taking ketorolac. Discussed worrisome signs and symptoms that would warrant re-evaluation in the emergency department. All questions were answered. Differential Diagnosis Differential Diagnoses: The differential diagnosis associated with the presentation includes (Dental abscess, dental caries, fracture tooth) Tests considered The following testing was considered but not selected: Physical examination without compelling evidence for abscess, CT imaging was deferred. Prescription Management I considered prescription management with: Pain Medication Discharge Plan Discharge Clinical Impression: Toothache Patient Disposition: Home, Self-Care Instructions: Toothache (ED) Additional Instructions: Please contact your dentist to arrange for a follow-up appointment. If he develops any new or worsening symptoms she can return back for re-evaluation. I have sent a prescription for Toradol to your pharmacy, please take this as prescribed. Do not take additional [id number] ibuprofen/Motrin/Advil/Aleve/naproxen while taking this medication. Prescriptions: New ketorolac 10 mg tablet 10 mg PO TID PRN (Reason: pain) 5 Days Qty: 15 0RF No Action amoxicillin 400 mg/5 mL suspension for reconstitution 800 mg PO BID 10 Days Qty: 200 0RF ibuprofen [Children's Ibuprofen] 100 mg/5 mL suspension 600 mg PO Q6H PRN (Reason: fever or pain) Qty: 500 0RF ketorolac 10 mg tablet 10 mg PO TID PRN (Reason: pain) 5 Days Qty: 15 0RF meloxicam 15 mg tablet 15 mg PO DAILY Qty: 14 0RF amoxicillin 400 mg/5 mL suspension for reconstitution 800 mg PO TID Qty: 300 0RF Referrals: Rober Grande MD [Primary Care Provider] -
== END 2023-07-28 01:40 | disposition home or self-care (01) ==
PROVIDERS: Emergency Provider Emergency Medicine; PCP Internal Medicine
DX: K08.89 Other specified disorders of teeth and supporting structures (principal); F12.90 Cannabis use, unspecified, uncomplicated
CPT/HCPCS: 99283; 99284

== ENCOUNTER 2023-09-03 19:47 | Emergency (ER) | payer OTHER, SELFPAY ==
[2023-09-03 20:19] VITALS: BP 155/101; PULSE 96; RESP 18; TEMP 36.9; O2SAT 98; BMI 21.1
--- NOTE | 2023-09-03 20:21 | ED.GENADULT ---
HPI - General Adult General Chief complaint: Dental/Oral Stated complaint: Tooth pain Time Seen by Provider: 09/03/23 20:28 Source: patient and RN notes reviewed Mode of arrival: ambulatory Limitations: no limitations History of Present Illness HPI narrative: This is a 23-year-old male presenting to the emergency department for evaluation left lower dental pain. Patient has been seen here multiple times for similar symptoms. He states that he followed up with a dentist and was told that he needed to schedule a root canal appointment with his dentist however states that his work schedule is too busy to do this. He denies any fevers or chills. Has been taking Tylenol and previously prescribed Toradol tablets. Has not taken any pain medication in the last 8 hours. No other complaints or concerns at this time. MD complaint: Dental pain Radiation: non-radiation Relieving factors: none Exacerbating factors: none Associated symptoms: denies other symptoms Treatments prior to arrival: none Related Data Previous Rx's Medication Instructions Recorded amoxicillin 400 mg/5 mL oral 800 mg (10 mL) PO TID #300 mL 02/08/23 suspension meloxicam 15 mg tablet 15 mg PO DAILY #14 tabs 02/08/23 amoxicillin 400 mg/5 mL oral 800 mg (10 mL) PO BID 10 days #200 05/29/23 suspension mL ibuprofen 100 mg/5 mL oral 600 mg (30 mL) PO Q6H PRN fever or 05/29/23 suspension (Children's Ibuprofen) pain #500 mL ketorolac 10 mg tablet 10 mg PO TID PRN pain 5 days #15 06/01/23 tabs ketorolac 10 mg tablet 10 mg PO TID PRN pain 5 days #15 07/28/23 tabs acetaminophen 650 mg/20.3 mL oral 650 mg (20.3 mL) PO Q4H PRN pain 09/03/23 suspension #609 mL amoxicillin 875 mg-potassium 1 tab PO BID 7 days #14 tabs 09/03/23 clavulanate 125 mg tablet Allergies Allergy/AdvReac Type Severity Reaction Status Date / Time pistachio nut [PISTACHIO] Allergy Intermediate VOMITS Verified 09/03/23 20:19 THROAT SWELLING DIFFICULTY BREATHING sunflower seed Allergy Unknown VOMITING Verified 09/03/23 20:19 [SUNFLOWER SEED] peanut Allergy Anaphylaxis Verified 10/07/23 20:19 Review of Systems Review of Systems: Yes all other systems are reviewed and are negative Constitutional: Constitutional: Reports as per [facility] Past Medical History Medical History No known health problems Social History Social History Alcohol intake: never Patient Tobacco Use Status: Never used Tobacco Substance Use Type: Marijuana Advance Directives: No Advance Directives Information Provided: Yes Physical Exam ED Vital Signs: Vital Signs - 24 hr 09/03/23 20:19 Temperature 98.4 F Pulse Rate 96 Respiratory Rate 18 Blood Pressure 155/101 H Pulse Oximetry 98 Oxygen Delivery Method Room Air BMI result Body Mass Index 21.1 Const General: cooperative, comfortable and no acute distress Orientation/consciousness: patient oriented x3 Limitations: no limitations HENMT Head: Yes normal to inspection, Yes normocephalic and Yes atraumatic Ears: hearing grossly normal bilaterally General nose exam: Normal external nose present Face and sinus: Yes normal facial exam Mouth: Normal oral and palatal mucosa present, oropharynx normal and moist mucous membranes Teeth image: 1. Tooth 17 with significant dental decay, no surrounding gum erythema or edema, no fluctuance or drainage Throat: Yes posterior oropharynx normal Eyes General: appearance normal, both eyes and all related structures Eyelids: Yes eyelids normal Conjunctivae: conjunctivae normal Sclerae: sclerae normal Pupils: Equal, round and reactive pupils present EOM: EOMs intact bilaterally Neck Neck: Yes normal visual inspection, Yes full ROM and Yes no lymphadenopathy Lymphatic: no lymphadenopathy noted Chest Chest palpation & inspection: normal inspection of the chest Resp Effort & Inspection: normal respiratory effort and able to speak in complete sentences Auscultation: clear to auscultation bilaterally Cardio Rate: regular rate Rhythm: regular rhythm Heart sounds: S1 normal heart sound present and S2 normal heart sound present GI Inspection: Yes normal to inspection Skin General skin exam: no rashes or lesions noted Trauma: no lacerations or abrasions Wounds: no wounds Neuro General: patient oriented x3 and moves all extremities Cranial nerves: Yes Equal, round and reactive pupils present Extrem General: Yes normal to inspection Right upper extremity: normal to inspection Left upper extremity: normal to inspection Right lower extremity: normal to inspection Left lower extremity: normal to inspection Course Course Course Narrative: Medications Administered Discontinued Medications Generic Name Dose Route Start Last Admin Trade Name Freq PRN Reason Stop Dose Admin Ketorolac Tromethamine 30 mg 09/03/23 20:29 09/03/23 20:40 Ketorolac Tromethamine 30 Mg/Ml Vial IM 09/03/23 20:30 30 mg ONCE ONE Administration Medical Decision Making Medical Decision Making [facility] Narrative: 23-year-old male presenting to the emergency department with complaints of left lower dental pain. On arrival, blood pressure mildly elevated at 150 5/101. Left lower dentition with obvious dental decay. No obvious dental abscess requiring incision and drainage at this time. Patient placed on Augmentin and given prescription for acetaminophen. Patient has trouble with tablet form, but is agreeable to take Augmentin in the pill form and requesting liquid Tylenol. Advised to follow-up with dentist. Given return precautions. Patient stable for discharge Differential Diagnosis Differential Diagnoses: The differential diagnosis associated with the presentation includes Dental decay, dental fracture, abscess Discharge Plan Discharge Clinical Impression: Dental decay Patient Disposition: Home, Self-Care Instructions: Toothache (ED), Mouth Care (ED) Additional Instructions: You have a tooth that is significantly decayed. We have given you a injection of Toradol. This is anti-inflammatory, do not take ibuprofen. Avoid taking any additional doses of Toradol for 24 hours. You may take Tylenol as needed for pain. Please take prescribed antibiotic. Finish the entire course even if your feeling better. You need to follow-up with a dentist as this will continue to cause you problems in the future. If any new or worsening symptoms occur please return for re-evaluation. Prescriptions: New amoxicillin-pot clavulanate 875-125 mg tablet 1 tab PO BID 7 Days Qty: 14 0RF acetaminophen 650 mg/20.3 mL suspension 650 mg PO Q4H PRN (Reason: pain) Qty: 609 0RF No Action ketorolac 10 mg tablet 10 mg PO TID PRN (Reason: pain) 5 Days Qty: 15 0RF amoxicillin 400 mg/5 mL suspension for reconstitution 800 mg PO BID 10 Days Qty: 200 0RF ibuprofen [Children's Ibuprofen] 100 mg/5 mL suspension 600 mg PO Q6H PRN (Reason: fever or pain) Qty: 500 0RF ketorolac 10 mg tablet 10 mg PO TID PRN (Reason: pain) 5 Days Qty: 15 0RF meloxicam 15 mg tablet 15 mg PO DAILY Qty: 14 0RF amoxicillin 400 mg/5 mL suspension for reconstitution 800 mg PO TID Qty: 300 0RF Interventions: ED Discharge Assessment Last Done: 09/03/23 21:07 Discharge Date/Time: 09/03/23 21:08
== END 2023-09-03 21:08 | disposition home or self-care (01) ==
PROVIDERS: Emergency Provider Emergency Medicine; PCP Internal Medicine
DX: K02.9 Dental caries, unspecified (principal); K08.89 Other specified disorders of teeth and supporting structures; F12.90 Cannabis use, unspecified, uncomplicated; Z79.899 Other long term (current) drug therapy
CPT/HCPCS: 96372; 99283; 99284; J1885

== ENCOUNTER 2023-09-04 08:44 | Emergency (ER) | payer OTHER, SELFPAY ==
[2023-09-04 08:51] VITALS: BP 187/111; PULSE 64; RESP 18; TEMP 36.1; O2SAT 99; BMI 21.7
--- NOTE | 2023-09-04 09:37 | ED.DENTAL ---
HPI - Dental/Oral General Chief complaint: Dental/Oral Stated complaint: Dental pain/vomiting Time Seen by Provider: 09/04/23 09:03 Source: patient Mode of arrival: ambulatory Limitations: no limitations History of Present Illness HPI Narrative: This is a 23-year-old male presenting to the emergency department for evaluation left lower dental pain. Patient has been seen here multiple times for similar symptoms. He states that he followed up with a dentist and was told that he needed to schedule a root canal appointment with his dentist however states that his work schedule is too busy to do this. He denies any fevers or chills. he was seen last evening for same complaint was prescribed Augmentin and Tylenol. Patient reports he took 1 dose last night and 1 dose this morning of both this having continued pain. He has not tried any anti-inflammatory medications. He reports that he did take the Augmentin/Tylenol this morning on empty stomach and then he vomited after this. He plans to call his dentist tomorrow Related Data Previous Rx's Medication Instructions Recorded amoxicillin 400 mg/5 mL oral 800 mg (10 mL) PO TID #300 mL 02/08/23 suspension meloxicam 15 mg tablet 15 mg PO DAILY #14 tabs 02/08/23 amoxicillin 400 mg/5 mL oral 800 mg (10 mL) PO BID 10 days #200 05/29/23 suspension mL ibuprofen 100 mg/5 mL oral 600 mg (30 mL) PO Q6H PRN fever or 05/29/23 suspension (Children's Ibuprofen) pain #500 mL ketorolac 10 mg tablet 10 mg PO TID PRN pain 5 days #15 06/01/23 tabs ketorolac 10 mg tablet 10 mg PO TID PRN pain 5 days #15 07/28/23 tabs acetaminophen 650 mg/20.3 mL oral 650 mg (20.3 mL) PO Q4H PRN pain 09/03/23 suspension #609 mL amoxicillin 875 mg-potassium 1 tab PO BID 7 days #14 tabs 09/03/23 clavulanate 125 mg tablet ibuprofen 100 mg/5 mL oral 600 mg (30 mL) PO Q6H PRN pain 09/04/23 suspension #473 mL Allergies Allergy/AdvReac Type Severity Reaction Status Date / Time pistachio nut [PISTACHIO] Allergy Intermediate VOMITS Verified 09/03/23 20:19 THROAT SWELLING DIFFICULTY BREATHING sunflower seed Allergy Unknown VOMITING Verified 09/03/23 20:19 [SUNFLOWER SEED] peanut Allergy Anaphylaxis Verified 09/03/23 20:19 Review of Systems Review of Systems: Yes all other systems are reviewed and are negative Constitutional: Constitutional: Reports no additional constitutional complaints, Denies body ache(s), Denies chills, Denies fever(s), Denies headache(s) and Denies weakness Eyes: Eyes: Reports no additional eye complaints and Denies change in vision ENT: Reports system reviewed and no additional complaints, except as documented, Reports dental pain, Denies dizziness, Denies headache(s), Denies nasal congestion, Denies nasal discharge and Denies neck pain Cardiovascular: Cardiovascular: Reports no additional cardiovascular complaints, Denies chest pain, Denies leg edema and Denies dyspnea Respiratory: Respiratory: Reports no additional respiratory complaints, Denies cough and Denies dyspnea Gastrointestinal: Gastrointestinal: Reports no additional gastrointestinal complaints, Denies abdominal pain, Denies diarrhea, Denies nausea and Denies vomiting Genitourinary: Genitourinary: Denies urinary incontinence Musculoskeletal: Musculoskeletal: Reports no additional musculoskeletal complaints, Denies back pain, Denies arthralgias, Denies joint swelling, Denies neck pain, Denies numbness and Denies tingling Integumentary/Breasts: Skin/Breast: Reports system reviewed and no additional complaints, except as docu and Denies rash Neurologic: Reports system reviewed and no additional complaints, except as documented, Denies Abnormal speech present, Denies dizziness, Denies headache(s), Denies numbness, Denies tingling and Denies weakness PMFSH Past Medical History Attestation statement: The following information was validated with the patient. Source: old records reviewed and nursing notes reviewed Medical History No known health problems Social History Social History Alcohol intake: never Patient Tobacco Use Status: Never used Tobacco Substance Use Type: Marijuana Advance Directives: No Advance Directives Information Provided: No Physical Exam Vital Signs: Vital Signs: Last Vital Signs Temp 96.9 F 09/04/23 08:51 Pulse 64 09/04/23 08:51 Resp 18 09/04/23 08:51 BP 187/111 H 09/04/23 08:51 Pulse Ox 99 09/04/23 08:51 O2 Del Method Room Air 09/04/23 08:51 BMI result Body Mass Index 21.7 Const: General: cooperative, healthy appearing, comfortable and no acute distress Orientation/consciousness: patient oriented x3 Limitations: no limitations HEENT: Other: no trismus Head: Yes normal to inspection Ears: hearing grossly normal bilaterally and TM's normal bilaterally General nose exam: Normal external nose present Face and sinus: Yes normal facial exam Mouth: Normal oral and palatal mucosa present Teeth image: 1. significant dental decay. No surrounding erythema, fluctuance or drainage. No trismus on exam. Throat: Yes posterior oropharynx normal, Yes tonsils normal and Yes uvula midline Eyes: General: appearance normal, both eyes and all related structures Pupils: Equal, round and reactive pupils present Neck: Neck: Yes normal visual inspection Chest: Chest palpation & inspection: normal inspection of the chest Resp: Effort & Inspection: normal respiratory effort Auscultation: clear to auscultation bilaterally Cardio: Rate: regular rate Rhythm: regular rhythm Peripheral pulses: Peripheral pulses 2+ throughout GI: Inspection: Yes normal to inspection Palpation (GI): Soft to palpation and nontender Auscultation: normal bowel sounds Back/Spine/Pelvis: Thoracic/Lumbar Spine: thoracic and lumbar spine normal to inspection Skin: General skin exam: no rashes or lesions noted Neuro: General: patient oriented x3, no focal motor deficits and normal sensation to monofilament Cranial nerves: Yes Equal, round and reactive pupils present Cognition (Neuro): normal cognition Speech: No Abnormal speech present Gait exam (Neuro): Normal gait present Motor exam (neuro): 5/5 motor strength present throughout Extrem: General: Yes normal to inspection Medical Decision Making Medical Decision Making MDM Narrative: This is a 23-year-old male presenting to the emergency department for evaluation left lower dental pain. Patient has been seen here multiple times for similar symptoms. He states that he followed up with a dentist and was told that he needed to schedule a root canal appointment with his dentist however states that his work schedule is too busy to do this. He denies any fevers or chills. he was seen last evening for same complaint was prescribed Augmentin and Tylenol. Patient reports he took 1 dose last night and 1 dose this morning of both this having continued pain. He has not tried any anti-inflammatory medications. He reports that he did take the Augmentin/Tylenol this morning on empty stomach and then he vomited after this. He plans to call his dentist tomorrow On exam patient has significant dental decay to tooth 17. He has no trismus on exam. He has no obvious abscess. I do believe that is appropriate that he continue the Augmentin Tylenol which were prescribed last evening. I will give him a shot of Toradol for pain and prescribed him an anti-inflammatory medication. I do recommend that he follow-up with dental clinic for continued care. Differential Diagnosis Differential Diagnoses: The differential diagnosis associated with the presentation includes No evidence on exam of dental abscess, Toi's angina Admission/Observation Consideration of admission/observation: Escalation of care including admission/observation considered no evidence of dental abscess requiring incision and drainage or Toi's angina requiring additional imaging, admission with IV antibiotics Tests considered The following testing was considered but not selected: no evidence of Toi's angina to suggest need for advanced imaging Prescription Management I considered prescription management with: Pain Medication and Antibiotic has not tried NSAIDs. Will add this Discharge Plan Discharge Clinical Impression: Toothache Patient Disposition: Home, Self-Care Instructions: Toothache (ED) Additional Instructions: continue the antibiotics are prescribed to you. Make sure that you are taking all your medications with food call the dentist tomorrow Prescriptions: New ibuprofen 100 mg/5 mL suspension 600 mg PO Q6H PRN (Reason: pain) Qty: 473 0RF No Action ketorolac 10 mg tablet 10 mg PO TID PRN (Reason: pain) 5 Days Qty: 15 0RF amoxicillin 400 mg/5 mL suspension for reconstitution 800 mg PO BID 10 Days Qty: 200 0RF ibuprofen [Children's Ibuprofen] 100 mg/5 mL suspension 600 mg PO Q6H PRN (Reason: fever or pain) Qty: 500 0RF ketorolac 10 mg tablet 10 mg PO TID PRN (Reason: pain) 5 Days Qty: 15 0RF amoxicillin-pot clavulanate 875-125 mg tablet 1 tab PO BID 7 Days Qty: 14 0RF acetaminophen 650 mg/20.3 mL suspension 650 mg PO Q4H PRN (Reason: pain) Qty: 609 0RF meloxicam 15 mg tablet 15 mg PO DAILY Qty: 14 0RF amoxicillin 400 mg/5 mL suspension for reconstitution 800 mg PO TID Qty: 300 0RF
== END 2023-09-04 09:53 | disposition home or self-care (01) ==
PROVIDERS: Emergency Provider Emergency Medicine; PCP Internal Medicine
DX: K08.89 Other specified disorders of teeth and supporting structures (principal); R11.2 Nausea with vomiting, unspecified; Z79.899 Other long term (current) drug therapy
CPT/HCPCS: 96372; 99283; 99284; J1885

== ENCOUNTER 2023-12-10 07:11 | Emergency (ER) | payer OTHER, SELFPAY ==
[2023-12-10 07:38] VITALS: BP 139/98; PULSE 62; RESP 18; TEMP 36.6; O2SAT 100; BMI 22.0
--- NOTE | 2023-12-10 09:26 | ED.NAVMDI ---
HPI - Nausea/Vomiting/Diarrhea General Chief complaint: Nausea/Vomiting/Diarrhea Stated complaint: abd pain Time Seen by Provider: 12/10/23 09:12 Source: patient Mode of arrival: ambulatory Limitations: no limitations History of Present Illness HPI Narrative: This is a 23-year-old male who is previously healthy who presents to the ER with complaints of upper abdominal pain and vomiting which began this morning with waking. Patient reports last night he went out with his friends and had for bonds is and 2 shots. He woke up this morning with epigastric discomfort and several episodes of vomiting. He describes the vomiting as quite forceful. The last few episodes had blood streaks. He reports since being here his vomiting is resolved and he no longer has abdominal discomfort. He is drinking mireille kristopher. He denies any black or bloody stools, fevers, chills, chest pain or shortness of breath. No AC therapy use. Associated nausea: Yes Related Data Previous Rx's Medication Instructions Recorded amoxicillin 400 mg/5 mL oral 800 mg (10 mL) PO TID #300 mL 02/08/23 suspension meloxicam 15 mg tablet 15 mg PO DAILY #14 tabs 02/08/23 amoxicillin 400 mg/5 mL oral 800 mg (10 mL) PO BID 10 days #200 05/29/23 suspension mL ibuprofen 100 mg/5 mL oral 600 mg (30 mL) PO Q6H PRN fever or 05/29/23 suspension (Children's Ibuprofen) pain #500 mL ketorolac 10 mg tablet 10 mg PO TID PRN pain 5 days #15 06/01/23 tabs ketorolac 10 mg tablet 10 mg PO TID PRN pain 5 days #15 07/28/23 tabs acetaminophen 650 mg/20.3 mL oral 650 mg (20.3 mL) PO Q4H PRN pain 09/03/23 suspension #609 mL amoxicillin 875 mg-potassium 1 tab PO BID 7 days #14 tabs 09/03/23 clavulanate 125 mg tablet ibuprofen 100 mg/5 mL oral 600 mg (30 mL) PO Q6H PRN pain 09/04/23 suspension #473 mL ondansetron 4 mg disintegrating 4 mg PO Q6H PRN nausea and 12/10/23 tablet vomiting #15 tabs Allergies Allergy/AdvReac Type Severity Reaction Status Date / Time pistachio nut [PISTACHIO] Allergy Intermediate VOMITS Verified 12/10/23 07:37 THROAT SWELLING DIFFICULTY BREATHING sunflower seed Allergy Unknown VOMITING Verified 12/10/23 07:37 [SUNFLOWER SEED] peanut Allergy Anaphylaxis Verified 12/10/23 07:37 Review of Systems Review of Systems: Yes all other systems are reviewed and are negative Constitutional: Constitutional: Reports no additional constitutional complaints, Denies body ache(s), Denies chills, Denies fever(s), Denies headache(s) and Denies weakness Eyes: Eyes: Reports no additional eye complaints and Denies change in vision ENT: Reports system reviewed and no additional complaints, except as documented, Denies dizziness, Denies headache(s), Denies nasal congestion, Denies nasal discharge and Denies neck pain Cardiovascular: Cardiovascular: Reports no additional cardiovascular complaints, Denies chest pain, Denies leg edema and Denies dyspnea Respiratory: Respiratory: Reports no additional respiratory complaints, Denies cough and Denies dyspnea Gastrointestinal: Gastrointestinal: Reports no additional gastrointestinal complaints, Reports abdominal pain, Denies melena, Denies hematochezia, Denies diarrhea, Reports nausea, Reports vomiting and Reports hematemesis Genitourinary: Genitourinary: Denies urinary incontinence Musculoskeletal: Musculoskeletal: Reports no additional musculoskeletal complaints, Denies back pain, Denies arthralgias, Denies joint swelling, Denies neck pain, Denies numbness and Denies tingling Integumentary/Breasts: Skin/Breast: Reports system reviewed and no additional complaints, except as docu and Denies rash Neurologic: Reports system reviewed and no additional complaints, except as documented, Denies Abnormal speech present, Denies dizziness, Denies headache(s), Denies numbness, Denies tingling and Denies weakness PMFSH Past Medical History Attestation statement: The following information was validated with the patient. Source: old records reviewed and nursing notes reviewed Onset Date is defined in the Problem List Problems that require an onset date and time if occurred within 24 hrs of arrival to the ED Aortic Dissection and Rupture; Neurologic impairment; Cardiopulmonary Arrest; Endotracheal Intubation; Insertion or Replacement of Mechanical Circulatory Assist Device Medical History No known health problems Social History Social History Alcohol intake: never Patient Tobacco Use Status: Never used Tobacco Substance Use Type: Marijuana Advance Directives: No Advance Directives Information Provided: No Physical Exam Vital Signs: Vital Signs: Last Vital Signs Temp 97.8 F 12/10/23 07:38 Pulse 62 12/10/23 07:38 Resp 18 12/10/23 07:38 BP 139/98 H 12/10/23 07:38 Pulse Ox 100 12/10/23 07:38 O2 Del Method Room Air 12/10/23 07:38 BMI result Body Mass Index 22.0 Const: General: cooperative, healthy appearing, comfortable and no acute distress Orientation/consciousness: patient oriented x3 Limitations: no limitations HEENT: Head: Yes normal to inspection Ears: hearing grossly normal bilaterally General nose exam: Normal external nose present Face and sinus: Yes normal facial exam Mouth: Normal oral and palatal mucosa present Throat: Yes posterior oropharynx normal Eyes: General: appearance normal, both eyes and all related structures Pupils: Equal, round and reactive pupils present Neck: Neck: Yes normal visual inspection, Yes full ROM, Yes no lymphadenopathy and Yes no meningeal signs Chest: Chest palpation & inspection: normal inspection of the chest Resp: Effort & Inspection: normal respiratory effort Auscultation: clear to auscultation bilaterally Cardio: Rate: regular rate Rhythm: regular rhythm Peripheral pulses: Peripheral pulses 2+ throughout GI: Inspection: Yes normal to inspection Palpation (GI): Soft to palpation and nontender Auscultation: normal bowel sounds Back/Spine/Pelvis: Thoracic/Lumbar Spine: thoracic and lumbar spine normal to inspection Skin: General skin exam: no rashes or lesions noted Neuro: General: patient oriented x3, no meningeal signs, no focal motor deficits and normal sensation to monofilament Cranial nerves: Yes Equal, round and reactive pupils present Cognition (Neuro): normal cognition Speech: No Abnormal speech present Gait exam (Neuro): Normal gait present Motor exam (neuro): 5/5 motor strength present throughout Extrem: General: Yes normal to inspection Medical Decision Making Medical Decision Making MDM Narrative: 23-year-old male who is previously healthy who presents to the ER with complaints of upper abdominal pain and vomiting which began this morning with waking. Patient reports last night he went out with his friends and had for bonds is and 2 shots. He woke up this morning with epigastric discomfort and several episodes of vomiting. He describes the vomiting as quite forceful. The last few episodes had blood streaks. He reports since being here his vomiting is resolved and he no longer has abdominal discomfort. He is drinking mireille kristopher. He denies any black or bloody stools, fevers, chills, chest pain or shortness of breath. No AC therapy use. On my exam the patient is drinking mireille kristopher. His abdomen is soft and nontender. His lungs are clear. Hemodynamically he is stable, nontoxic appearing patient feels well and would like to be discharged home. As he is tolerating p.o. I do not feel that he needs any additional lab work, imaging or further management in the ER. Likely gastritis secondary to alcohol use. low suspicion for acute abdomen, upper GI bleed. will send patient home with jerardo Hernandez and strict return precautions Differential Diagnosis Differential Diagnoses: The differential diagnosis associated with the presentation includes gastritis low concern for acute abdomen, upper GI bleed, borheave syndrome Admission/Observation Consideration of admission/observation: Escalation of care including admission/observation considered nontoxic, no current complaints, hemodynamically stable. I do not feel that the patient needs labs, GI consultation and or admission Tests considered The following testing was considered but not selected: labs, CT imaging Prescription Management I considered prescription management with: Pain Medication Discharge Plan Discharge Clinical Impression: Vomiting Patient Disposition: Home, Self-Care Instructions: Acute Nausea and Vomiting (ED) Additional Instructions: Return for chest pain, abdominal pain, shortness of breath or vomiting blood as discussed Prescriptions: New ondansetron 4 mg tablet,disintegrating 4 mg PO Q6H PRN (Reason: nausea and vomiting) Qty: 15 0RF No Action ketorolac 10 mg tablet 10 mg PO TID PRN (Reason: pain) 5 Days Qty: 15 0RF amoxicillin 400 mg/5 mL suspension for reconstitution 800 mg PO BID 10 Days Qty: 200 0RF ibuprofen [Children's Ibuprofen] 100 mg/5 mL suspension 600 mg PO Q6H PRN (Reason: fever or pain) Qty: 500 0RF ketorolac 10 mg tablet 10 mg PO TID PRN (Reason: pain) 5 Days Qty: 15 0RF amoxicillin-pot clavulanate 875-125 mg tablet 1 tab PO BID 7 Days Qty: 14 0RF acetaminophen 650 mg/20.3 mL suspension 650 mg PO Q4H PRN (Reason: pain) Qty: 609 0RF ibuprofen 100 mg/5 mL suspension 600 mg PO Q6H PRN (Reason: pain) Qty: 473 0RF meloxicam 15 mg tablet 15 mg PO DAILY Qty: 14 0RF amoxicillin 400 mg/5 mL suspension for reconstitution 800 mg PO TID Qty: 300 0RF Referrals: Rober Grande MD [Primary Care Provider] - 1 week
== END 2023-12-10 09:34 | disposition home or self-care (01) ==
PROVIDERS: Emergency Provider Emergency Medicine; PCP Internal Medicine
DX: R11.2 Nausea with vomiting, unspecified (principal); R10.13 Epigastric pain
CPT/HCPCS: 99283

== ENCOUNTER 2024-08-10 06:33 | Emergency (ER) | payer SELFPAY ==
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
[2024-08-10 06:34] VITALS: BP 136/72; PULSE 83; RESP 18; TEMP 36.6; O2SAT 100; BMI 23.5
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
[2024-08-10 10:22] VITALS: BP 136/72; PULSE 83; RESP 18; TEMP 36.6; O2SAT 100
== END 2024-08-10 10:22 | disposition home or self-care (01) ==
PROVIDERS: Emergency Provider Emergency Medicine; PCP Internal Medicine
DX: S39.012A Strain of muscle, fascia and tendon of lower back, initial encounter (principal); S76.011A Strain of muscle, fascia and tendon of right hip, initial encounter; S16.1XXA Strain of muscle, fascia and tendon at neck level, initial encounter; S80.01XA Contusion of right knee, initial encounter; S80.211A Abrasion, right knee, initial encounter; V23.49XA Other motorcycle driver injured in collision with car, pick-up truck or van in traffic accident, initial encounter; F12.90 Cannabis use, unspecified, uncomplicated; Z79.899 Other long term (current) drug therapy; Y93.89 Activity, other specified; Y92.414 Local residential or business street as the place of occurrence of the external cause; Y99.9 Unspecified external cause status
CPT/HCPCS: 72040; 72100; 73502; 73564; 99282; 99283

== ENCOUNTER 2024-09-12 08:24 | Outpatient (REF) | payer SELFPAY | END 2024-09-12 08:25 | disposition home or self-care (01) | LOC: HO.HOSX 08:24 | PROVIDERS: Visit Provider Physician Assistant | DX: Z13.89 Encounter for screening for other disorder (principal) ==

== ENCOUNTER 2025-04-20 06:52 | Emergency (ER) | payer OTHER, SELFPAY ==
[2025-04-20 06:54] VITALS: BP 159/85; PULSE 60; RESP 17; TEMP 36.9; O2SAT 100; BMI 21.1
--- OUTSIDE RECORDS SUMMARY | 2025-04-20 07:06 | XMS_ITS | Encounter Summary ---
Author Organization [facility] Address [address] [place] [phone] Phone Care Team Providers Care Gas Meter Mechanic Name Role Phone Jagdish Warren MD Primary Care Provider [phone] Encounter Details Date Type Department Care Team (Late st Contact Info) Description 05/14/2010 Documentation [facility] [place] [facility] [address] [place], [place] [id number] Family Medicine, Physician [address] [place], [place] [id number] Social History Tobacco Use Types Packs/Day Years Used Date Smoking Tobacco: Never Assessed Sex and Gender Information Value Date Recorded Sex Assigned at Not on file Legal Sex Male 4:51 PM EDT Gender Identity Not on file Sexual Orientation Not on file documented as of this encounter Plan of Treatment Not on file documented as of this encounter Visit Diagnoses Not on filedocumented in this encounter Care Teams Gas Meter Mechanic Relationship Specialty Start Date End Date Jagdish Warren MD [address] [facility] [place] [address] PCP - General Pediatrics 03/12/18 02/09/23 documented as of this encounter
--- NOTE | 2025-04-20 09:15 | ED_ITS ---
HPI - General Adult General Chief complaint: Dental/Oral Stated complaint: Dental Pain Time Seen by Provider: 04/20/25 09:13 Source: patient Mode of arrival: ambulatory Limitations: no limitations History of Present Illness ED Provider: Deedee Fajardo PA-C HPI narrative: 24 y.o male with a past medical history of dental carries, GERD presents to the ED with a chief complaint of right bottom molar pain. Patient states that he was brushing his teeth last night and the tooth really began to bother him. He reports that he has an appointment with a dentist on 04/25/2025 but wanted to get it checked out. Patient denies radiating pain to the jaw or ear. Denies headaches, blurry vision, change in swallowing or shortness of breath. Patient states that he cannot swallow pills at baseline and he has never been able to. Patient states that he has a peanut allergy and he does not currently have an epi-pen and he was wondering if he could get his epi-pen prescribed. MD complaint: Pain in further molar on the bottom right Onset (ago): hour(s) Location: mouth (right bottom back molar (#31)) Radiation: non-radiation Relieving factors: none Exacerbating factors: eating, movement and other (brushing teeth) Associated symptoms: denies other symptoms Treatments prior to arrival: other (acetaminophen) Related Data Previous Rx's ?Medication ?Instructions ?Recorded amoxicillin 400 mg/5 mL oral 800 mg (10 mL) PO TID #300 mL 02/08/23 suspension meloxicam 15 mg tablet 15 mg PO DAILY #14 tabs 02/08/23 amoxicillin 400 mg/5 mL oral 800 mg (10 mL) PO BID 10 days #200 05/29/23 suspension mL ibuprofen 100 mg/5 mL oral 600 mg (30 mL) PO Q6H PRN fever or 05/29/23 suspension (Children's Ibuprofen) pain #500 mL ketorolac 10 mg tablet 10 mg PO TID PRN pain 5 days #15 06/01/23 tabs ketorolac 10 mg tablet 10 mg PO TID PRN pain 5 days #15 07/28/23 tabs acetaminophen 650 mg/20.3 mL oral 650 mg (20.3 mL) PO Q4H PRN pain 09/03/23 suspension #609 mL amoxicillin 875 mg-potassium 1 tab PO BID 7 days #14 tabs 09/03/23 clavulanate 125 mg tablet ibuprofen 100 mg/5 mL oral 600 mg (30 mL) PO Q6H PRN pain 09/04/23 suspension #473 mL ondansetron 4 mg disintegrating 4 mg PO Q6H PRN nausea and 12/10/23 tablet vomiting #15 tabs cyclobenzaprine 10 mg tablet 10 mg PO TID PRN muscle spasm #20 08/10/24 tabs ibuprofen 600 mg tablet 600 mg PO Q6H PRN pain #30 tabs 08/10/24 lidocaine 5 % topical patch 1 patch topical DAILY #30 ea 08/10/24 amoxicillin 400 mg/5 mL oral 875 mg (10.9375 mL) PO TID 7 days 04/20/25 suspension #229.688 mL chlorhexidine gluconate 0.12 % 15 ml buccal BID #118 mL 04/20/25 mouthwash (Peridex) epinephrine 0.3 mg/0.3 mL 0.3 mg (0.3 mL) IM Q10M PRN 04/20/25 injection, auto-injector (EpiPen) anaphylaxis #2 ea Allergies Allergy/AdvReac Type Severity Reaction Status Date / Time pistachio nut [PISTACHIO] Allergy Intermediate VOMITS Verified 04/20/25 06:55 THROAT SWELLING DIFFICULTY BREATHING sunflower seed Allergy Unknown VOMITING Verified 04/20/25 06:55 [SUNFLOWER SEED] peanut Allergy Anaphylaxis Verified 04/20/25 06:55 Review of Systems 2 Constitutional: Constitutional: Reports no additional constitutional complaints, Denies chills, Denies fever(s) and Denies night sweats Eyes: Eyes: Reports no additional eye complaints, Denies blurry vision, Denies change in vision, Denies diplopia, Denies eye discharge, Denies loss of vision and Denies eye pain ENT: Reports dental pain (right lower), Denies dizziness and Reports mouth pain Cardiovascular: Cardiovascular: Reports no additional cardiovascular complaints, Denies chest pain, Denies lightheadedness, Denies Loss of Consciousness and Denies dyspnea Respiratory: Respiratory: Reports no additional respiratory complaints and Denies dyspnea Gastrointestinal: Gastrointestinal: Reports no additional gastrointestinal complaints, Denies abdominal pain, Denies melena, Denies hematochezia, Denies change in bowel habits and Denies change in stool character Genitourinary: Genitourinary: Reports no additional male genitourinary complaints, Denies hematuria, Denies oliguria, Denies difficulty urinating, Denies dysuria, Denies urinary frequency, Denies urinary hesitancy, Denies urinary incontinence and Denies urinary urgency Musculoskeletal: Musculoskeletal: Reports no additional musculoskeletal complaints, Denies numbness and Denies tingling Neurologic: Denies dizziness, Denies loss of vision, Denies numbness and Denies tingling Psychiatric: Psychiatric: Reports no additional psychiatric complaints Endocrine: Endocrine: Reports no additional endocrine complaints Hematologic/Lymphatic: Hematologic/Lymphatic: Reports no additional hematologic/lymphatic complaints Allergic/Immunologic: Allergic/Immunologic: Reports no additional allergic/immunologic complaints [facility] Past Medical History Attestation statement: The following information was validated with the patient. Source: old records reviewed and nursing notes reviewed Medical History No known health problems Social History Social History Alcohol intake: never Patient Tobacco Use Status: Never used Tobacco Smoked in Last 30 Days: No Use of substances other than those prescribed or required for medical reasons: No Substance Use Type: Marijuana Advance Directives: No Advance Directives Information Provided: No Do you have a plan to hurt others: No Plan Physical Exam ED Vital Signs: Vital Signs - 24 hr 04/20/25 06:54 04/20/25 10:15 04/20/25 10:45 Temperature 98.5 F 97.6 F 97.6 F Pulse Rate 60 58 58 Respiratory Rate 17 14 14 Blood Pressure 159/85 H 128/79 128/79 Pulse Oximetry 100 99 99 Oxygen Delivery Method Room Air Room Air Room Air BMI result Body Mass Index 21.1 Const General: cooperative, no acute distress, alert and awake Nutritional Appearance: well nourished Orientation/consciousness: patient oriented x3 HENMT Head: Yes normal to inspection and Yes atraumatic Ears: hearing grossly normal bilaterally and external ears normal General nose exam: Normal external nose present, no nasal discharge noted and no epistaxis Face and sinus: Yes normal facial exam, No abrasion and No laceration Mouth: Normal oral and palatal mucosa present, lip normal, tongue normal, moist mucous membranes, no drooling and no muffled voice Teeth and gingiva: caries and poor dentition Teeth image: 2 1. dental alex covering entirety of tooth 2. dental alex covering entirety of tooth 3. dental alex covering entirety of tooth 4. dental alex covering entirety of tooth Eyes General: appearance normal, both eyes and all related structures Periorbital: periorbital findings normal Eyelids: Yes eyelids normal Conjunctivae: conjunctivae normal Pupils: Equal, round and reactive pupils present EOM: EOMs intact bilaterally Neck Neck: Yes normal visual inspection, Yes full ROM and Yes no lymphadenopathy Resp Effort & Inspection: normal respiratory effort and able to speak in complete sentences Neuro General: patient oriented x3, moves all extremities and CN's II-XI intact bilaterally Cranial nerves: Yes Equal, round and reactive pupils present Cognition (Neuro): normal cognition Extrem General: Yes normal to inspection, Yes full ROM and Yes capillary refill normal Psych Appearance: grossly normal Mental Status: mental status grossly normal Affect: normal affect Attitude: cooperative Thought process: Normal thought process present Thought content: Normal thought content present Insight: Good insight present (Psych) Medical Decision Making Medical Decision Making MDM Narrative: Patient is a 24 year old assigned male at with a history of a peanut allergy presenting to the emergency department today with right lower dental pain. Patient's physical exam was as noted in the physical exam portion of this note. Patient had erythema around the right posterior molar but no evidence of fluctuance / abscess. Patient has dental caries in all of his most posterior molars. I explained my physical exam findings to the patient. I answered all questions asked by the patient. I stressed the importance of the patient taking his medication as directed (either prescribed or as the over the counter packaging recommends). I stressed the importance of the patient following up with his primary care provider and his dentist as scheduled. I stressed the importance of the patient returning to the emergency department immediately if his symptoms were to worsen or if he were to develop any dizziness, shortness of breath, difficulty breathing, chest pain, blurry vision, loss of vision, nausea, vomiting, abdominal pain, fever, chills, back pain, or any other complaints. Patient verbalized agreement and understanding with this treatment plan and discharge. Differential Diagnosis Differential Diagnoses: The differential diagnosis associated with the presentation includes Dental caries Poor dentition Dental pain Dental infection Admission/Observation Consideration of admission/observation: Escalation of care including admission/observation considered Patient would have been admitted to the hospital had his clinical presentation warranted hospital admission. Prescription Management I considered prescription management with: Antibiotic (patient prescribed an antibiotic for dental infection) Discharge Plan Discharge Clinical Impression: Poor dentition, Dental infection, H/O peanut allergy Patient Disposition: Home, Self-Care Instructions: Dental Abscess (ED), Toothache (ED), Peanut Allergy (ED) Additional Instructions: While you were not seen here today for an allergic reaction - you expressed concern that you have a peanut allergy and do not have an epi-pen. I have prescribed one for you. Follow up with your primary care provider and your dentist. Take your medication as prescribed. Return to the emergency department immediately if your symptoms worsen or if you develop any numbness, tingling, dizziness, shortness of breath, difficulty breathing, chest pain, blurry vision, loss of vision, nausea, vomiting, abdominal pain, fever, chills, back pain, or any other complaints. Please see the information below about our Patient Portal. If you are not yet enrolled in the [facility] Patient Portal, you will receive an enrollment email invitation following your visit to any [facility] setting. You may also self-enroll in the Patient Portal by visiting our website: [email or web address] The following information is required to access the Patient Portal: - Your [facility] Medical Record Number - Your personal home email address (must match what is in your electronic medical record, Registration staff can assist with this) - Name - Date of Capabilities of the Patient Portal: - Message some providers - View upcoming appointments - Access your health summary, medical history, and visit history - View current conditions and allergies - View procedure and lab results - View your medications, including guidelines, side effects, and precautions - Complete pre-appointment questionnaires requested by your provider - Ready summary reports of your office visits and procedures To access the Patient Portal Mobile [place], follow these directions: - Search DoApp in the [place] Store or [employer] Store - Download the [place] - Search for [facility] - Enter your login/password Prescriptions: New chlorhexidine gluconate [Peridex] 0.12 % mouthwash 15 ml buccal BID Qty: 118 0RF amoxicillin 400 mg/5 mL suspension for reconstitution 875 mg PO TID 7 Days Qty: 229.688 0RF epinephrine [EpiPen] 0.3 mg/0.3 mL auto-injector 0.3 mg IM Q10M PRN (Reason: anaphylaxis) Qty: 2 0RF Rx Instructions: for 2 doses No Action ketorolac 10 mg tablet 10 mg PO TID PRN (Reason: pain) 5 Days Qty: 15 0RF cyclobenzaprine 10 mg tablet 10 mg PO TID PRN (Reason: muscle spasm) Qty: 20 0RF lidocaine 5 % adhesive patch,medicated 1 patch topical DAILY Qty: 30 0RF Rx Instructions: leave on most painful area for up to 12 hrs ibuprofen 600 mg tablet 600 mg PO Q6H PRN (Reason: pain) Qty: 30 0RF amoxicillin 400 mg/5 mL suspension for reconstitution 800 mg PO BID 10 Days Qty: 200 0RF ibuprofen [Children's Ibuprofen] 100 mg/5 mL suspension 600 mg PO Q6H PRN (Reason: fever or pain) Qty: 500 0RF ketorolac 10 mg tablet 10 mg PO TID PRN (Reason: pain) 5 Days Qty: 15 0RF amoxicillin-pot clavulanate 875-125 mg tablet 1 tab PO BID 7 Days Qty: 14 0RF acetaminophen 650 mg/20.3 mL suspension 650 mg PO Q4H PRN (Reason: pain) Qty: 609 0RF ibuprofen 100 mg/5 mL suspension 600 mg PO Q6H PRN (Reason: pain) Qty: 473 0RF ondansetron 4 mg tablet,disintegrating 4 mg PO Q6H PRN (Reason: nausea and vomiting) Qty: 15 0RF meloxicam 15 mg tablet 15 mg PO DAILY Qty: 14 0RF amoxicillin 400 mg/5 mL suspension for reconstitution 800 mg PO TID Qty: 300 0RF Referrals: Rober Grande MD [Primary Care Provider] - Stand Alone Forms: Work/School Release Interventions: ED Discharge Assessment Last Done: 04/20/25 10:45 Discharge Date/Time: 04/20/25 10:45 Print Language: Portuguese
[2025-04-20 10:15] VITALS: BP 128/79; PULSE 58; RESP 14; TEMP 36.4; O2SAT 99
[2025-04-20 10:45] VITALS: BP 128/79; PULSE 58; RESP 14; TEMP 36.4; O2SAT 99
== END 2025-04-20 10:45 | disposition home or self-care (01) ==
PROVIDERS: Emergency Provider Emergency Medicine; PCP Internal Medicine
DX: K04.7 Periapical abscess without sinus (principal); K08.89 Other specified disorders of teeth and supporting structures; K13.79 Other lesions of oral mucosa
CPT/HCPCS: 99283; 99284

== ENCOUNTER 2025-06-10 22:03 | Emergency (ER) | payer OTHER, SELFPAY ==
--- NOTE | ~2025-06-10 | XR_ITS ---
CLINICAL HISTORY: chest pain Chest X-ray, 1 View COMPARISON: None provided FINDINGS: No consolidation. No pleural effusion. No pneumothorax. No cardiomegaly. No acute fracture. IMPRESSION: No acute findings. This document has been electronically signed by: Angel Luis Sanchez MD on 06/10/2025 23:19:32
--- NOTE | 2025-06-10 22:05 | ECG_ITS ---
Test Reason : cp Blood Pressure : */* mmHG Vent. Rate : 70 BPM Atrial Rate : 70 BPM P-R Int : 178 ms QRS Dur : 94 ms QT Int : 374 ms P-R-T Axes : 79 74 58 degrees QTcB Int : 403 ms Normal sinus rhythm Normal ECG No previous ECGs available Referred By: Generic ED Physician Electronically Signed By: DIPIKA MUNSON
[2025-06-10 22:18] VITALS: BP 141/79; PULSE 55; RESP 18; TEMP 36.7; O2SAT 98; BMI 22.0
[2025-06-10 22:25] LABS: MANUAL DIFF FLAG NO
[2025-06-10 22:26] LABS: Hematocrit 44.3 % (42.0-52.0); Hemoglobin 15.3 g/dl (14.0-18.0); Imm Gran Abs Auto 0.04 X10*3/uL (0.00-0.03); Imm Gran Pct Auto 0.3 % (0.0-0.4); Lymphocytes Absolute Auto 2.4 X10*3/uL (1.2-4.9); Mean Corpuscular HGB Conc 34.5 g/dl (31.0-36.0); Mean Corpuscular Hemoglobin 29.4 pg (27.0-33.0); Mean Corpuscular Volume 85.0 fL (80.0-98.0); NRBC Abs Auto 0.000 X10*3/uL (0.0-0.012); NRBC Pct Auto 0.0 /100WBC (0.0-0.2); Platelet Count 220 X10*3/uL (160-400); Red Blood Count 5.21 X10*6/uL (4.60-5.80); White Blood Count 11.6 X10*3/uL (4.8-10.8)
[2025-06-10 22:45] LABS: Alanine Aminotransferase 19 U/L (0-40); Albumin Level 4.9 g/dL (3.5-5.0); Alkaline Phosphatase 61 U/L (39-117); Anion Gap 13 (12-20); Aspartate Amino Transferase 21 U/L (5-37); Blood Urea Nitrogen 10 mg/dL (9-16); Calcium 9.6 mg/dL (8.4-10.2); Carbon Dioxide 22 mmol/L (22-29); Chloride 108 mmol/L (96-108); Creatinine Clr Calc Pharmacy 100.4; Estimated Glomerular Filt Rate > 60; Potassium 3.9 mmol/L (3.3-5.1); Sodium 139 mmol/L (135-145); Total Protein 7.2 g/dL (6.5-8.0)
[2025-06-10 22:53] LABS: Troponin-I High Sensitivity < 2.7 ng/L (<3.5-35.0)
--- NOTE | 2025-06-11 00:12 | ED.CHESTPAIN ---
HPI - Chest Pain General Chief Complaint: Chest Pain Stated Complaint: severe chest pain Time Seen by Provider: 06/10/25 23:35 History of Present Illness ED Provider: Dedrick Bartholomew MD HPI narrative: This is a healthy 25-year-old male marijuana/tobacco smoker with no underlying medical history reported intermittent chest discomfort usually with inspiration and when smoking marijuana earlier today. He had a couple different episodes lasting only sec at a time. He does endorse that he lifted weights and worked out with the chest workout yesterday and attributed some of his pain to this. He denied dyspnea cough fever hemoptysis leg swelling history of DVT PE or any cardiac history. Related Data Previous Rx's ?Medication ?Instructions ?Recorded amoxicillin 400 mg/5 mL oral 800 mg (10 mL) PO TID #300 mL 02/08/23 suspension meloxicam 15 mg tablet 15 mg PO DAILY #14 tabs 02/08/23 amoxicillin 400 mg/5 mL oral 800 mg (10 mL) PO BID 10 days #200 05/29/23 suspension mL ibuprofen 100 mg/5 mL oral 600 mg (30 mL) PO Q6H PRN fever or 05/29/23 suspension (Children's Ibuprofen) pain #500 mL ketorolac 10 mg tablet 10 mg PO TID PRN pain 5 days #15 06/01/23 tabs ketorolac 10 mg tablet 10 mg PO TID PRN pain 5 days #15 07/28/23 tabs acetaminophen 650 mg/20.3 mL oral 650 mg (20.3 mL) PO Q4H PRN pain 09/03/23 suspension #609 mL amoxicillin 875 mg-potassium 1 tab PO BID 7 days #14 tabs 09/03/23 clavulanate 125 mg tablet ibuprofen 100 mg/5 mL oral 600 mg (30 mL) PO Q6H PRN pain 09/04/23 suspension #473 mL ondansetron 4 mg disintegrating 4 mg PO Q6H PRN nausea and 12/10/23 tablet vomiting #15 tabs cyclobenzaprine 10 mg tablet 10 mg PO TID PRN muscle spasm #20 08/10/24 tabs ibuprofen 600 mg tablet 600 mg PO Q6H PRN pain #30 tabs 08/10/24 lidocaine 5 % topical patch 1 patch topical DAILY #30 ea 08/10/24 amoxicillin 400 mg/5 mL oral 875 mg (10.9375 mL) PO TID 7 days 04/20/25 suspension #229.688 mL chlorhexidine gluconate 0.12 % 15 ml buccal BID #118 mL 04/20/25 mouthwash (Peridex) epinephrine 0.3 mg/0.3 mL 0.3 mg (0.3 mL) IM Q10M PRN 04/20/25 injection, auto-injector (EpiPen) anaphylaxis #2 ea Allergies Allergy/AdvReac Type Severity Reaction Status Date / Time pistachio nut (PISTACHIO) Allergy Intermediate VOMITS Verified 06/10/25 22:20 THROAT SWELLING DIFFICULTY BREATHING sunflower seed (SUNFLOWER Allergy Unknown VOMITING Verified 06/10/25 22:20 SEED) peanut Allergy Anaphylaxis Verified 06/10/25 22:20 [facility] Past Medical History Medical History No known health problems Social History Social History Alcohol intake: never Patient Tobacco Use Status: Never used Tobacco Smoked in Last 30 Days: Yes Use of substances other than those prescribed or required for medical reasons: Yes Substance Use Type: Marijuana Substance Use Frequency: Daily Last Used Substance: Hours (ago) Advance Directives: No Advance Directives Information Provided: No Do you have a plan to hurt others: No Plan Physical Exam Vital Signs: Vital Signs: Last Vital Signs Temp 98.3 F 06/11/25 01:16 Pulse 65 06/11/25 01:16 Resp 16 06/11/25 01:16 BP 134/69 06/11/25 01:16 Pulse Ox 98 06/11/25 01:16 O2 Del Method Room Air 06/11/25 01:16 BMI result Body Mass Index 22.0 EXAM: Gen: Alert, awake, well appearing, well hydrated. Head: Atraumatic Eyes: Anicteric, Normal conjunctiva. ENT: Moist mucosa, no pallor. ? Neck: Supple. Skin: ?No observable rash or bruising on exposed or examined skin Respiratory: Breathing comfortably, No distress.Clear to auscultation bilaterally, symmetric chest expansion, No wheeze, rales, ronchi. Cardiovascular: Regular rate and rhythm. No murmurs or rub. Well perfused periphery, warm extremities. No edema. ? Abdominal: No focal tenderness. Soft, no objective distension. No palpable masses or obvious organomegaly. ?No guarding, no rebound tenderness or other peritoneal findings. : No flank tenderness. Neuro: Alert. Gross movement of all extremities intact. ? Psych: Calm. Cooperative. MSK: No grossly visible deformity. Vital signs: See flowsheet Procedures Procedure Narrative Procedure Narrative: EMERGENCY ULTRASOUND INTERPRETATION-Limited Echocardiography [This study was ordered, performed, and interpreted by myself. The study reveals: Impression: NORMAL LV FUNCTION, NO RV DYSFUNCTION, NO PERICARDIAL EFFUSION] [Emergent Cardiac for Indication: Views Used: PLAX, PSSA, A4, SX, IVC Pericardial Effusion/Tamponade Findings: NONE RV Dilation (> LV diam in 4ch apical): NONE Global LV Fxn: NORMAL IVC Dilation and Resp Variation: NORMAL Performed by: MD Puma Images were stored CPT:32013] Medical Decision Making Medical Decision Making MDM Narrative: Medical Decision Making: [age] male with no significant history tobacco/marijuana smoker with right-sided parasternal lower anterior chest discomfort after pectoral work out. No pneumothorax. ECG with diffuse ST ST elevations concave upward J-point notching probably benign early repolarization. Symptomatology not suggestive of pericarditis though this was considered. Troponin negative. Bedside echo without acute abnormality or effusion. Preliminary Favored Differential Diagnosis: Pericarditis, musculoskeletal chest pain, pectoral strain, pleuritis, pneumothorax,among additional considered etiologies Testing Interpreted Independently: Bedside echo without effusion or other abnormality see report Radiology or Lab testing Results Reviewed: Chest x-ray report reviewed Consults: Not Applicable Independent Historians/External Chart Reviews: Not Applicable Social Determinants of Health Impacting MDM/Planning: Not Applicable Lab Data 06/10/25 22:16 06/10/25 22:16 Labs: Lab Results 06/10/25 06/11/25 Range/Units 22:16 00:22 WBC 11.6 H (4.8-10.8) X10*3/uL RBC 5.21 (4.60-5.80) X10*6/uL Hgb 15.3 (14.0-18.0) g/dl Hct 44.3 (42.0-52.0) % MCV 85.0 (80.0-98.0) fL MCH 29.4 (27.0-33.0) pg MCHC 34.5 (31.0-36.0) g/dl RDW 12.6 (11.0-16.0) % Plt Count 220 D (160-400) X10*3/uL MPV 9.8 (9.4-12.4) fL Immature Gran % (Auto) 0.3 (0.0-0.4) % Neut % (Auto) 67.6 (45-73) % Lymph % (Auto) 20.8 (20-40) % [place] % (Auto) 7.8 (2-11) % Eos % (Auto) 3.0 (0-4) % Baso % (Auto) 0.5 (0-2) % Lymph # (Auto) 2.4 (1.2-4.9) X10*3/uL [place] # (Auto) 0.9 (0.1-1.2) X10*3/uL Eos # (Auto) 0.4 (0.0-0.4) X10*3/uL Baso # (Auto) 0.1 (0.0-0.2) X10*3/uL Abs Immat Gran (auto) 0.04 H (0.00-0.03) X10*3/uL Absolute Neuts (auto) 7.8 (2.0-8.3) x10*3/uL Absolute Nucleated RBC 0.000 (0.0-0.012) X10*3/uL Nucleated RBC % (auto) 0.0 (0.0-0.2) /100WBC Sodium 139 (135-145) mmol/L Potassium 3.9 (3.3-5.1) mmol/L Chloride 108 (96-108) mmol/L Carbon Dioxide 22 (22-29) mmol/L Anion Gap 13 (12-20) BUN 10 (9-16) mg/dL Creatinine 1.19 (0.5-1.4) mg/dL Estim Creat Clear Calc 100.4 Estimated GFR > 60 Random Glucose 93 (60-115) mg/dL Calcium 9.6 (8.4-10.2) mg/dL Total Bilirubin 0.9 (0.0-1.0) mg/dL AST 21 (5-37) U/L ALT 19 (0-40) U/L Alkaline Phosphatase 61 (39-117) U/L Troponin I High Sens < 2.7 < 2.7 (<3.5-35.0) ng/L Total Protein 7.2 (6.5-8.0) g/dL Albumin 4.9 (3.5-5.0) g/dL Discharge Plan Discharge Clinical Impression: Atypical chest pain Patient Disposition: Home, Self-Care Instructions: Chest Wall Pain (ED) Additional Instructions: DISCHARGE DIAGNOSES: Chest pain felt most likely to be chest wall/musculoskeletal pain HISTORY OF PRESENTATION: Chest pain EMERGENCY DEPARTMENT COURSE,TESTS, TREATMENTS: While in the ED today you had an echocardiogram which was normal and reassuring you had heart attack enzyme test and blood work which was reassuring. You had a chest x-ray with no collapsed lung signs of pneumonia or other acute abnormalities. Your EKG showed signs of early repolarization probably benign I have given you a copy of this of the you can keep it DISCHARGE MEDICATIONS: ?[We have made no changes to your regular medication regimen] Ibuprofen as needed for pain over the next few days as we discussed this is [id number] FOLLOW-UP: ?Call your primary or general physician soon as possible to discuss your symptoms, your ED visit and to discuss follow up plans Call your primary doctor for follow up INSTRUCTIONS ?& RETURN PRECAUTIONS: If any symptoms change first call your primary physician, if it is after-hours your primary doctors office should have a provider immersion metalcleaner you can speak with. If the symptoms are severe or very concerning to you then call 911 or return to the ED. Return for severe worsening chest pain or other symptoms as we discussed. Dedrick Bartholomew MD Emergency Physician [facility] Prescriptions: No Action ketorolac 10 mg tablet 10 mg PO TID PRN (Reason: pain) 5 Days Qty: 15 0RF cyclobenzaprine 10 mg tablet 10 mg PO TID PRN (Reason: muscle spasm) Qty: 20 0RF lidocaine 5 % adhesive patch,medicated 1 patch topical DAILY Qty: 30 0RF Rx Instructions: leave on most painful area for up to 12 hrs ibuprofen 600 mg tablet 600 mg PO Q6H PRN (Reason: pain) Qty: 30 0RF chlorhexidine gluconate [Peridex] 0.12 % mouthwash 15 ml buccal BID Qty: 118 0RF amoxicillin 400 mg/5 mL suspension for reconstitution 875 mg PO TID 7 Days Qty: 229.688 0RF epinephrine [EpiPen] 0.3 mg/0.3 mL auto-injector 0.3 mg IM Q10M PRN (Reason: anaphylaxis) Qty: 2 0RF Rx Instructions: for 2 doses amoxicillin 400 mg/5 mL suspension for reconstitution 800 mg PO BID 10 Days Qty: 200 0RF ibuprofen [Children's Ibuprofen] 100 mg/5 mL suspension 600 mg PO Q6H PRN (Reason: fever or pain) Qty: 500 0RF ketorolac 10 mg tablet 10 mg PO TID PRN (Reason: pain) 5 Days Qty: 15 0RF amoxicillin-pot clavulanate 875-125 mg tablet 1 tab PO BID 7 Days Qty: 14 0RF acetaminophen 650 mg/20.3 mL suspension 650 mg PO Q4H PRN (Reason: pain) Qty: 609 0RF ibuprofen 100 mg/5 mL suspension 600 mg PO Q6H PRN (Reason: pain) Qty: 473 0RF ondansetron 4 mg tablet,disintegrating 4 mg PO Q6H PRN (Reason: nausea and vomiting) Qty: 15 0RF meloxicam 15 mg tablet 15 mg PO DAILY Qty: 14 0RF amoxicillin 400 mg/5 mL suspension for reconstitution 800 mg PO TID Qty: 300 0RF Interventions: ED Discharge Assessment Last Done: 06/11/25 01:16 Discharge Date/Time: 06/11/25 01:16 Print Language: Divehi
[2025-06-11 00:19] VITALS: BP 127/82; PULSE 80; RESP 14; TEMP 37.1; O2SAT 97
[2025-06-11 01:06] LABS: Troponin-I High Sensitivity < 2.7 ng/L (<3.5-35.0)
[2025-06-11 01:16] VITALS: BP 134/69; PULSE 65; RESP 16; TEMP 36.8; O2SAT 98
== END 2025-06-11 01:16 | disposition home or self-care (01) ==
PROVIDERS: Emergency Provider Emergency Medicine; PCP Internal Medicine
DX: R07.89 Other chest pain (principal); F12.90 Cannabis use, unspecified, uncomplicated
CPT/HCPCS: 36415; 71045; 80053; 84484; 85025; 93005; 93308; 99284; 99285

== ENCOUNTER → 2025-06-10 22:05 | Outpatient (BNV) | payer SELFPAY | PROVIDERS: Emergency Provider Emergency Medicine; PCP Internal Medicine; Visit Provider Internal Medicine | DX: R07.9 Chest pain, unspecified (principal) | CPT/HCPCS: 93010 ==

== ENCOUNTER → 2025-06-10 22:11 | Outpatient (BNV) | payer SELFPAY | PROVIDERS: Emergency Provider Emergency Medicine; PCP Internal Medicine; Visit Provider Radiology Diagnostic Radiology | DX: R07.9 Chest pain, unspecified (principal) | CPT/HCPCS: 71045 ==

== ENCOUNTER 2025-06-15 16:48 | Emergency (ER) | payer OTHER, SELFPAY ==
[2025-06-15 16:56] VITALS: BP 133/92; PULSE 89; RESP 16; TEMP 36.5; O2SAT 99; BMI 21.5
--- NOTE | 2025-06-15 16:57 | ED.GENADULT ---
HPI - General Adult General Chief complaint: Dental/Oral Stated complaint: tooth pain Time Seen by Provider: 06/15/25 16:57 Source: patient, RN notes reviewed and old records reviewed Mode of arrival: ambulatory Limitations: no limitations History of Present Illness ED Provider: Jamey HPI narrative: 25-year-old male presents for evaluation of facial pain. He reports he has had a bad tooth in his right upper molar. He reports he has been unable to get it removed because of insurance issues. He states he had had pain for the last few days Related Data Previous Rx's ?Medication ?Instructions ?Recorded amoxicillin 400 mg/5 mL oral 800 mg (10 mL) PO TID #300 mL 02/08/23 suspension meloxicam 15 mg tablet 15 mg PO DAILY #14 tabs 02/08/23 amoxicillin 400 mg/5 mL oral 800 mg (10 mL) PO BID 10 days #200 05/29/23 suspension mL ibuprofen 100 mg/5 mL oral 600 mg (30 mL) PO Q6H PRN fever or 05/29/23 suspension (Children's Ibuprofen) pain #500 mL ketorolac 10 mg tablet 10 mg PO TID PRN pain 5 days #15 06/01/23 tabs ketorolac 10 mg tablet 10 mg PO TID PRN pain 5 days #15 07/28/23 tabs acetaminophen 650 mg/20.3 mL oral 650 mg (20.3 mL) PO Q4H PRN pain 09/03/23 suspension #609 mL amoxicillin 875 mg-potassium 1 tab PO BID 7 days #14 tabs 09/03/23 clavulanate 125 mg tablet ibuprofen 100 mg/5 mL oral 600 mg (30 mL) PO Q6H PRN pain 09/04/23 suspension #473 mL ondansetron 4 mg disintegrating 4 mg PO Q6H PRN nausea and 12/10/23 tablet vomiting #15 tabs cyclobenzaprine 10 mg tablet 10 mg PO TID PRN muscle spasm #20 08/10/24 tabs ibuprofen 600 mg tablet 600 mg PO Q6H PRN pain #30 tabs 08/10/24 lidocaine 5 % topical patch 1 patch topical DAILY #30 ea 08/10/24 amoxicillin 400 mg/5 mL oral 875 mg (10.9375 mL) PO TID 7 days 04/20/25 suspension #229.688 mL chlorhexidine gluconate 0.12 % 15 ml buccal BID #118 mL 04/20/25 mouthwash (Peridex) epinephrine 0.3 mg/0.3 mL 0.3 mg (0.3 mL) IM Q10M PRN 04/20/25 injection, auto-injector (EpiPen) anaphylaxis #2 ea amoxicillin 400 mg/5 mL oral 500 mg (6.25 mL) PO TID 7 days 06/15/25 suspension #131.25 mL Allergies Allergy/AdvReac Type Severity Reaction Status Date / Time pistachio nut (PISTACHIO) Allergy Intermediate VOMITS Verified 06/15/25 16:57 THROAT SWELLING DIFFICULTY BREATHING sunflower seed (SUNFLOWER Allergy Unknown VOMITING Verified 06/15/25 16:57 SEED) peanut Allergy Anaphylaxis Verified 06/15/25 16:57 Review of Systems Constitutional: Constitutional: Denies body ache(s), Denies chills and Denies fever(s) Eyes: Eyes: Denies blurry vision ENT: Reports facial pain, Reports mouth pain, Denies sore throat and Denies throat swelling Cardiovascular: Cardiovascular: Denies chest pain Gastrointestinal: Gastrointestinal: Denies abdominal pain Musculoskeletal: Musculoskeletal: Denies back pain Allergic/Immunologic: Allergic/Immunologic: Denies throat swelling PMFSH Past Medical History Medical History No known health problems Social History Social History Alcohol intake: never Patient Tobacco Use Status: Never used Tobacco Substance Use Type: Marijuana Advance Directives: No Advance Directives Information Provided: No Do you have a plan to hurt others: No Plan Physical Exam ED Vital Signs: Vital Signs - 24 hr 06/15/25 16:56 Temperature 97.7 F Pulse Rate 89 Respiratory Rate 16 Blood Pressure 133/92 H Pulse Oximetry 99 Oxygen Delivery Method Room Air BMI result Body Mass Index 21.5 Const General: healthy appearing, comfortable, no acute distress, alert and awake Nutritional Appearance: well nourished Orientation/consciousness: patient oriented x3 HENMT Other: Minimal gingival edema to the right upper side. No obvious dental abscess Head: Yes normocephalic and Yes atraumatic Eyes Eyelids: Yes eyelids normal Conjunctivae: conjunctivae normal Sclerae: sclerae normal Corneas: corneas normal Pupils: Equal, round and reactive pupils present EOM: EOMs intact bilaterally Neck Neck: Yes full ROM Resp Effort & Inspection: normal respiratory effort, able to speak in complete sentences and not labored Skin General skin exam: elasticity normal Neuro General: patient oriented x3 Cranial nerves: Yes Equal, round and reactive pupils present and Yes Bilaterally intact EOM present Cognition (Neuro): normal cognition Extrem Other: Moving all extremities well without any obvious deformities Medical Decision Making Medical Decision Making [facility] Narrative: We will treat the patient's atypical facial pain and dental caries with the amoxicillin t.i.d. x7 days. He will follow up with his dentist when able Differential Diagnosis Differential Diagnoses: The differential diagnosis associated with the presentation includes Dental caries Gingivitis Dental abscess Toothache Facial pain Discharge Plan Discharge Clinical Impression: Dental caries Patient Disposition: Home, Self-Care Instructions: Toothache (ED) Additional Instructions: Take amoxicillin 3 times a day for 1 week Follow up with your dentist Return for new or worsening symptoms Prescriptions: New amoxicillin 400 mg/5 mL suspension for reconstitution 500 mg PO TID 7 Days Qty: 131.25 0RF No Action ketorolac 10 mg tablet 10 mg PO TID PRN (Reason: pain) 5 Days Qty: 15 0RF cyclobenzaprine 10 mg tablet 10 mg PO TID PRN (Reason: muscle spasm) Qty: 20 0RF lidocaine 5 % adhesive patch,medicated 1 patch topical DAILY Qty: 30 0RF Rx Instructions: leave on most painful area for up to 12 hrs ibuprofen 600 mg tablet 600 mg PO Q6H PRN (Reason: pain) Qty: 30 0RF chlorhexidine gluconate [Peridex] 0.12 % mouthwash 15 ml buccal BID Qty: 118 0RF amoxicillin 400 mg/5 mL suspension for reconstitution 875 mg PO TID 7 Days Qty: 229.688 0RF epinephrine [EpiPen] 0.3 mg/0.3 mL auto-injector 0.3 mg IM Q10M PRN (Reason: anaphylaxis) Qty: 2 0RF Rx Instructions: for 2 doses amoxicillin 400 mg/5 mL suspension for reconstitution 800 mg PO BID 10 Days Qty: 200 0RF ibuprofen [Children's Ibuprofen] 100 mg/5 mL suspension 600 mg PO Q6H PRN (Reason: fever or pain) Qty: 500 0RF ketorolac 10 mg tablet 10 mg PO TID PRN (Reason: pain) 5 Days Qty: 15 0RF amoxicillin-pot clavulanate 875-125 mg tablet 1 tab PO BID 7 Days Qty: 14 0RF acetaminophen 650 mg/20.3 mL suspension 650 mg PO Q4H PRN (Reason: pain) Qty: 609 0RF ibuprofen 100 mg/5 mL suspension 600 mg PO Q6H PRN (Reason: pain) Qty: 473 0RF ondansetron 4 mg tablet,disintegrating 4 mg PO Q6H PRN (Reason: nausea and vomiting) Qty: 15 0RF meloxicam 15 mg tablet 15 mg PO DAILY Qty: 14 0RF amoxicillin 400 mg/5 mL suspension for reconstitution 800 mg PO TID Qty: 300 0RF Discharge Date/Time: 06/15/25 17:06 Print Language: Malay
== END 2025-06-15 17:06 | disposition home or self-care (01) ==
PROVIDERS: Emergency Provider Emergency Medicine; PCP Internal Medicine
DX: K02.9 Dental caries, unspecified (principal); K08.89 Other specified disorders of teeth and supporting structures; G50.1 Atypical facial pain; F12.90 Cannabis use, unspecified, uncomplicated
CPT/HCPCS: 99281; 99283

== ENCOUNTER 2025-07-11 12:14 | Emergency (ER) | payer OTHER, SELFPAY ==
[2025-07-11 12:20] VITALS: BP 164/84; PULSE 74; RESP 16; TEMP 36.7; O2SAT 99; BMI 23.0
--- NOTE | 2025-07-11 12:21 | ED.GENADULT ---
HPI - General Adult General Chief complaint: Dental/Oral Stated complaint: Tooth pain Time Seen by Provider: 07/11/25 12:29 Source: patient and RN notes reviewed Mode of arrival: ambulatory Limitations: no limitations History of Present Illness ED Provider: Federica Hays PA-C HPI narrative: This is a 25 year old male who presents to the ED with concerns for R sided dental pain. He reports that he has known issues with this tooth and he went to the dentist today and they instructed him that he needs antibiotics but they do not prescribe them there. Pain worsened yesterday. No fevers, chills, difficulty swallowing, facial swelling. Denies taking any medications at home to treat his symptoms. No other complaints or concerns at this time. MD complaint: Dental pain Onset (ago): day(s) Radiation: non-radiation Exacerbating factors: none Associated symptoms: denies other symptoms Treatments prior to arrival: none Related Data Previous Rx's ?Medication ?Instructions ?Recorded amoxicillin 400 mg/5 mL oral 800 mg (10 mL) PO TID #300 mL 02/08/23 suspension meloxicam 15 mg tablet 15 mg PO DAILY #14 tabs 02/08/23 amoxicillin 400 mg/5 mL oral 800 mg (10 mL) PO BID 10 days #200 05/29/23 suspension mL ibuprofen 100 mg/5 mL oral 600 mg (30 mL) PO Q6H PRN fever or 05/29/23 suspension (Children's Ibuprofen) pain #500 mL ketorolac 10 mg tablet 10 mg PO TID PRN pain 5 days #15 06/01/23 tabs ketorolac 10 mg tablet 10 mg PO TID PRN pain 5 days #15 07/28/23 tabs acetaminophen 650 mg/20.3 mL oral 650 mg (20.3 mL) PO Q4H PRN pain 09/03/23 suspension #609 mL amoxicillin 875 mg-potassium 1 tab PO BID 7 days #14 tabs 09/03/23 clavulanate 125 mg tablet ibuprofen 100 mg/5 mL oral 600 mg (30 mL) PO Q6H PRN pain 09/04/23 suspension #473 mL ondansetron 4 mg disintegrating 4 mg PO Q6H PRN nausea and 12/10/23 tablet vomiting #15 tabs cyclobenzaprine 10 mg tablet 10 mg PO TID PRN muscle spasm #20 08/10/24 tabs ibuprofen 600 mg tablet 600 mg PO Q6H PRN pain #30 tabs 08/10/24 lidocaine 5 % topical patch 1 patch topical DAILY #30 ea 08/10/24 amoxicillin 400 mg/5 mL oral 875 mg (10.9375 mL) PO TID 7 days 04/20/25 suspension #229.688 mL chlorhexidine gluconate 0.12 % 15 ml buccal BID #118 mL 04/20/25 mouthwash (Peridex) epinephrine 0.3 mg/0.3 mL 0.3 mg (0.3 mL) IM Q10M PRN 04/20/25 injection, auto-injector (EpiPen) anaphylaxis #2 ea amoxicillin 400 mg/5 mL oral 500 mg (6.25 mL) PO TID 7 days 06/15/25 suspension #131.25 mL amoxicillin 400 mg/5 mL oral 500 mg (6.25 mL) PO TID 7 days 07/11/25 suspension #131.25 mL Allergies Allergy/AdvReac Type Severity Reaction Status Date / Time pistachio nut (PISTACHIO) Allergy Intermediate VOMITS Verified 07/11/25 12:23 THROAT SWELLING DIFFICULTY BREATHING sunflower seed (SUNFLOWER Allergy Unknown VOMITING Verified 07/11/25 12:23 SEED) peanut Allergy Anaphylaxis Verified 07/11/25 12:23 Review of Systems Review of Systems: Yes all other systems are reviewed and are negative Constitutional: Constitutional: Reports as per [facility] Past Medical History Medical History No known health problems Social History Social History Alcohol intake: never Patient Tobacco Use Status: Never used Tobacco Substance Use Type: Marijuana Advance Directives: No Advance Directives Information Provided: Yes Do you have a plan to hurt others: No Plan Physical Exam ED Vital Signs: BMI result Body Mass Index 23.0 Const General: cooperative, comfortable and no acute distress Orientation/consciousness: patient oriented x3 Limitations: no limitations HENMT Other: Dentition in poor repair. Tooth number 32 in poor repair with ttp. No surrounding gingival edema, fluctuance. No trismus, drooling or dysphonia. Speaking in full sentences. Head: Yes normal to inspection, Yes normocephalic and Yes atraumatic Ears: hearing grossly normal bilaterally General nose exam: Normal external nose present Face and sinus: Yes normal facial exam Mouth: Normal oral and palatal mucosa present, oropharynx normal and moist mucous membranes Throat: Yes posterior oropharynx normal Eyes General: appearance normal, both eyes and all related structures Eyelids: Yes eyelids normal Conjunctivae: conjunctivae normal Sclerae: sclerae normal Pupils: Equal, round and reactive pupils present EOM: EOMs intact bilaterally Neck Neck: Yes normal visual inspection, Yes full ROM and Yes no lymphadenopathy Lymphatic: no lymphadenopathy noted Chest Chest palpation & inspection: normal inspection of the chest Resp Effort & Inspection: normal respiratory effort and able to speak in complete sentences Auscultation: clear to auscultation bilaterally, no crackles, no rales, no rhonchi and no wheezes Cardio Rate: regular rate Rhythm: regular rhythm Heart sounds: S1 normal heart sound present and S2 normal heart sound present GI Inspection: Yes normal to inspection Skin General skin exam: no rashes or lesions noted Trauma: no lacerations or abrasions Wounds: no wounds Neuro General: patient oriented x3 and moves all extremities Cranial nerves: Yes Equal, round and reactive pupils present Extrem General: Yes normal to inspection Right upper extremity: normal to inspection Left upper extremity: normal to inspection Right lower extremity: normal to inspection Left lower extremity: normal to inspection Medical Decision Making Medical Decision Making MDM Narrative: 25 y/o M who presents to the ED with c/o dental pain. He has known dental problems and is seeing a dentist. No dental abscess seen on exam. He is in no acute distress. Will treat with amoxicillin suspension as patient is unable to swallow pills (this is his typical baseline). Given return precautions. Stressed the importance of f/u with dentist. He understands and agrees with plan. Pt stable for d/c. Differential Diagnosis Differential Diagnoses: The differential diagnosis associated with the presentation includes dental abscess, dental carries, dental fracture, facial pain Discharge Plan Discharge Clinical Impression: Dental caries Patient Disposition: Home, Self-Care Instructions: Toothache (ED) Additional Instructions: You were seen in the emergency department for dental pain. Please take prescribed antibiotic as directed, finish the entire course. You need to follow-up with your dentist as this will continue to become a problem for you, and being prescribed antibiotics repetitively can be very harmful to your health. Take ibuprofen and or Tylenol as needed for pain and symptoms. If any new or worsening symptoms occur including but not limited to difficulty swallowing, breathing, please seek emergent care. Prescriptions: New amoxicillin 400 mg/5 mL suspension for reconstitution 500 mg PO TID 7 Days Qty: 131.25 0RF No Action ketorolac 10 mg tablet 10 mg PO TID PRN (Reason: pain) 5 Days Qty: 15 0RF cyclobenzaprine 10 mg tablet 10 mg PO TID PRN (Reason: muscle spasm) Qty: 20 0RF lidocaine 5 % adhesive patch,medicated 1 patch topical DAILY Qty: 30 0RF Rx Instructions: leave on most painful area for up to 12 hrs ibuprofen 600 mg tablet 600 mg PO Q6H PRN (Reason: pain) Qty: 30 0RF chlorhexidine gluconate [Peridex] 0.12 % mouthwash 15 ml buccal BID Qty: 118 0RF amoxicillin 400 mg/5 mL suspension for reconstitution 875 mg PO TID 7 Days Qty: 229.688 0RF epinephrine [EpiPen] 0.3 mg/0.3 mL auto-injector 0.3 mg IM Q10M PRN (Reason: anaphylaxis) Qty: 2 0RF Rx Instructions: for 2 doses amoxicillin 400 mg/5 mL suspension for reconstitution 800 mg PO BID 10 Days Qty: 200 0RF ibuprofen [Children's Ibuprofen] 100 mg/5 mL suspension 600 mg PO Q6H PRN (Reason: fever or pain) Qty: 500 0RF ketorolac 10 mg tablet 10 mg PO TID PRN (Reason: pain) 5 Days Qty: 15 0RF amoxicillin-pot clavulanate 875-125 mg tablet 1 tab PO BID 7 Days Qty: 14 0RF acetaminophen 650 mg/20.3 mL suspension 650 mg PO Q4H PRN (Reason: pain) Qty: 609 0RF ibuprofen 100 mg/5 mL suspension 600 mg PO Q6H PRN (Reason: pain) Qty: 473 0RF ondansetron 4 mg tablet,disintegrating 4 mg PO Q6H PRN (Reason: nausea and vomiting) Qty: 15 0RF amoxicillin 400 mg/5 mL suspension for reconstitution 500 mg PO TID 7 Days Qty: 131.25 0RF meloxicam 15 mg tablet 15 mg PO DAILY Qty: 14 0RF amoxicillin 400 mg/5 mL suspension for reconstitution 800 mg PO TID Qty: 300 0RF Interventions: ED Discharge Assessment Last Done: 07/11/25 12:37 Discharge Date/Time: 07/11/25 12:38 Print Language: Portuguese
[2025-07-11 12:37] VITALS: BP 164/84; PULSE 74; RESP 16; TEMP 36.7; O2SAT 99
--- OUTSIDE RECORDS SUMMARY | 2025-07-11 13:18 | XMS_ITS | Encounter Summary ---
Author Organization [facility] Address [address] [place] [address] Phone Care Team Providers Care Baby Stroller Rental Clerk Name Role Phone Jagdish Warren MD Primary Care Provider [phone] Encounter Details Date Type Department Care Team (Late st Contact Info) Description 05/14/2010 Documentation [facility] [place] [address] [place], [place] [id number] Family Medicine, Physician [address] [place], [place] [id number] Social History Tobacco Use Types Packs/Day Years [...] on filedocumented in this encounter Care Teams Baby Stroller Rental Clerk Relationship Specialty Start Date End Date Jagdish Warren MD [address] [place] [address] PCP - General Pediatrics 03/12/18 02/09/23 documented as of this encounter
== END 2025-07-11 12:38 | disposition home or self-care (01) ==
PROVIDERS: Emergency Provider Emergency Medicine; PCP Internal Medicine
DX: K02.9 Dental caries, unspecified (principal); K08.89 Other specified disorders of teeth and supporting structures
CPT/HCPCS: 99282; 99283

== ENCOUNTER 2025-08-21 20:29 | Emergency (ER) | payer SELFPAY ==
[2025-08-21 20:31] VITALS: BP 155/74; PULSE 74; RESP 18; TEMP 37.1; O2SAT 98; BMI 23.8
--- OUTSIDE RECORDS SUMMARY | 2025-08-21 20:46 | XMS_ITS | Encounter Summary ---
Author Organization [facility] Address [address] [place] [id number] Phone Care Team Providers Care Land Appraiser Name Role Phone Jagdish Warren MD Primary Care Provider [phone] Encounter Details Date Type Department Care Team (Late st Contact Info) Description 09/16/2010 Documentation [facility] [place] Family Medicine [address] [place] [address] Family Medicine, Physician [address] [place], [place] [address] Social History Tobacco Use Types Packs/Day Years [...] on filedocumented in this encounter Care Teams Land Appraiser Relationship Specialty Start Date End Date Jagdish Warren MD [address] [facility] [place] [address] PCP - General Pediatrics 03/12/18 02/09/23 documented as of this encounter
--- OUTSIDE RECORDS SUMMARY | 2025-08-21 20:46 | XMS_ITS | Encounter Summary ---
Author Organization [facility] Address [address] [place] [address] Phone Care Team Providers Care Flatwork Folder Name Role Phone Jagdish Warren MD Primary Care Provider [phone] Encounter Details Date Type Department Care Team (Late st Contact Info) Description 05/14/2010 Documentation [facility] [place] Family Medicine [address] [place], [place] [phone] Family Medicine, Physician [address] [place], [place] [address] Social History Tobacco Use Types Packs/Day Years [...] on filedocumented in this encounter Care Teams Flatwork Folder Relationship Specialty Start Date End Date Jagdish Warren MD [address] [facility] [place] [address] PCP - General Pediatrics 03/12/18 02/09/23 documented as of this encounter
--- OUTSIDE RECORDS SUMMARY | 2025-08-21 20:46 | XMS_ITS | Clinical Summary ---
Author Organization [facility] Address [address] [place] [address] Phone Care Team Providers Care Advertising Display Rotator Name Role Phone Unavailable Primary Care Provider Unavailabl e Immunizations Immunization Administration Dates Next Due DTaP 5 03/18/2004, 1,1999, 999,1999 HPV, Quadrivalent 02/26/2015,01/23/2014 Hep A, ped/adol 02/26/2015 Hep B, ped/adol 08/16/2000,01/28/2000,1999 Hib (PRP-T) 08/16/2000, 9,1999, 999 IPV 03/18/2004, 0,1999, 999 MMR 03/18/2004,06/13/2000 Meningococcal Conj (Menactra) MCV4P 09/20/2011 Tdap 09/20/2011 Varicella 09/11/2008,06/13/2000 Family History Relation Name Status Comments Father Father: Migrain es, Diabetes mellitus, Hypertension Mother Alive Mother: Alive a nd well Other No family histo ry of Cancer, No family history of Strabismus, Family history of Hyperlipidemia, Family history of CVA (Stroke), No family history of Heart disease, Family history of Thyroid disease, No family history of Thrombophilia, Family history of Migraines, No family history of Sudden syndrome, No family history of Sudden /[place] under age 55, No family history of Seizure disorder, No family history of Dental caries, No family history of Obesity, No family history of Asthma Social History Tobacco Use Types Packs/Day Years Used Date Smoking Tobacco: Never Assessed Sex and Gender Information Value Date Recorded Sex Assigned at Not on file Legal Sex Male 4:51 PM EDT Gender Identity Not on file Sexual Orientation Not on file Last Filed Vital Signs Vital Sign Reading Time Taken Comments Blood Pressure 140/76 03/04/2015 12:00 AM EDT Pulse 67 03/04/2015 12:00 AM EDT Temperature 36.4 C (97.5 F) 02/26/2015 12:00 AM EDT Respiratory Rate - - Oxygen Saturation - - Inhaled Oxygen Concentration - - Weight 79.2 kg (174 lb 9.6 oz) 03/04/2015 12:00 AM EDT Height 177.8 cm (5' 10 ) 03/04/2015 12:00 AM EDT Body Mass Index 25.05 03/04/2015 12:00 AM EDT Plan of Treatment Health Maintenance Due Date Last Done Comments Hepatitis A Vaccines (2 of 2 - 2-dose series) 08/28/2015 02/26/2015 DTaP,Tdap,and Td Vaccines (7 - Td or Tdap) 09/20/2021 09/20/2011, 03/18/2004, 12/13/2000, Additional history exists Influenza Vaccines (#1) 2025 COVID-19 Vaccine ( season) 2025 HIB Vaccines Completed 08/16/2000, 12/1998, 1999, Additional history exists Hepatitis B Vaccines Completed 08/16/2000, 01/28/2000, 1999 IPV Vaccines Completed 03/18/2004, 07/29, 1999, Additional history exists MMR Vaccines Completed 03/18/2004, 06/13/2000 Varicella Vaccines Completed 09/11/2008, 06/13/2000 Meningococcal Vaccine Aged Out 09/20/2011 No emily luann eligible based on patient's age to complete this topic HPV Vaccines Completed 02/26/2015, 01/23/2014 Men B Vaccine Aged Out No longer elig ible based on patient's age to complete this topic Pneumococcal Vaccine Aged Out No long er eligible based on patient's age to complete this topic
--- OUTSIDE RECORDS SUMMARY | 2025-08-21 20:47 | XMS_ITS | Encounter Summary ---
Author Organization [facility] Address [address] [place] [address] Phone Care Team Providers Care Technical Inspector Name Role Phone Jagdish Warren MD Primary Care Provider [phone] Encounter Details Date Type Department Care Team (Late st Contact Info) Description 02/06/2014 Documentation [facility] [place] Family Medicine [address] [place], [place] [phone] Family Medicine, Physician [address] [place], [place] [phone] Social History Tobacco Use Types Packs/Day Years [...] on filedocumented in this encounter Care Teams Technical Inspector Relationship Specialty Start Date End Date Jagdish Warren MD [address] [place] [address] PCP - General Pediatrics 03/12/18 02/09/23 documented as of this encounter
--- OUTSIDE RECORDS SUMMARY | 2025-08-21 20:47 | XMS_ITS | Encounter Summary ---
Author Organization [facility] Address [address] [place] [address] Phone Care Team Providers Care Trail Maintenance Worker Name Role Phone Jagdish Warren MD Primary Care Provider [phone] Encounter Details Date Type Department Care Team (Late st Contact Info) Description 07/14/2017 Conversion Encounter [facility] [place] [address] [place] [address] Social History Tobacco Use Types Packs/Day Years [...] on filedocumented in this encounter Care Teams Trail Maintenance Worker Relationship Specialty Start Date End Date Jagdish Warren MD [address] [place] [address] PCP - General Pediatrics 03/12/18 02/09/23 documented as of this encounter
--- NOTE | 2025-08-21 22:24 | ED_ITS ---
HPI - Dental/Oral General Chief complaint: Dental/Oral Stated complaint: tooth pain Time Seen by Provider: 08/21/25 22:08 Source: patient Mode of arrival: ambulatory Limitations: no limitations History of Present Illness ED Provider: Dr. Paty Mendez HPI Narrative: Patient comes to the emergency room complaining of dental pain in the right mandibular side. Patient states it has been going on for months. Patient states that he has an appointment pending with his dentist. Patient states that he was instructed to antibiotics prior to his 1st appointment. Patient states that the pain is tolerable, has Tylenol and Motrin at home. Related Data Previous Rx's ?Medication ?Instructions ?Recorded amoxicillin 400 mg/5 mL oral 800 mg (10 mL) PO TID #30 0 mL 02/08/23 suspension meloxicam 15 mg tablet 15 mg PO DAILY #14 tabs 01/26 03/20 amoxicillin 400 mg/5 mL oral 800 mg (10 mL) PO BID 10 days #200 05/29/23 suspension mL ibuprofen 100 mg/5 mL oral 600 mg (30 mL) PO Q6H PRN f ever or 05/29/23 suspension (Children's Ibuprofen) pain #500 mL ketorolac 10 mg tablet 10 mg PO TID PRN pain 5 days #15 06/01/23 tabs ketorolac 10 mg tablet 10 mg PO TID PRN pain 5 days #15 07/28/23 tabs acetaminophen 650 mg/20.3 mL oral 650 mg (20.3 mL) PO Q4H PRN pain 09/03/23 suspension #609 mL amoxicillin 875 mg-potassium 1 tab PO BID 7 days #14 t abs 09/03/23 clavulanate 125 mg tablet ibuprofen 100 mg/5 mL oral 600 mg (30 mL) PO Q6H PRN p ain 09/04/23 suspension #473 mL ondansetron 4 mg disintegrating 4 mg PO Q6H PRN nausea and 12/10/23 tablet vomiting #15 tabs cyclobenzaprine 10 mg tablet 10 mg PO TID PRN muscle s pasm #20 08/10/24 tabs ibuprofen 600 mg tablet 600 mg PO Q6H PRN pain #30 t abs 08/10/24 lidocaine 5 % topical patch 1 patch topical DAILY #30 ea 08/10/24 amoxicillin 400 mg/5 mL oral 875 mg (10.9375 mL) PO TI D 7 days 04/20/25 suspension #229.688 mL chlorhexidine gluconate 0.12 % 15 ml buccal BID #118 m L 04/20/25 mouthwash (Peridex) epinephrine 0.3 mg/0.3 mL 0.3 mg (0.3 mL) IM Q10M PRN 04/20/25 injection, auto-injector (EpiPen) anaphylaxis #2 ea amoxicillin 400 mg/5 mL oral 500 mg (6.25 mL) PO TID 7 days 06/15/25 suspension #131.25 mL amoxicillin 400 mg/5 mL oral 500 mg (6.25 mL) PO TID 7 days 07/11/25 suspension #131.25 mL amoxicillin 400 mg/5 mL oral 500 mg (6.25 mL) PO TID 1 0 days 08/21/25 suspension #187.5 mL Allergies Allergy/AdvReac Type Severity Reaction Status Date / Time pistachio nut (PISTACHIO) Allergy Intermediate VOMITS Verified 08/21/25 20:32 THROAT SWELLING DIFFICULTY BREATHING sunflower seed (SUNFLOWER Allergy Unknown VOMITING Verified 08/21/25 20:32 SEED) peanut Allergy Anaphylaxis Verified 08/21/25 20:32 Review of Systems Review of Systems: Constitutional : No Weight loss, No Fever, No Chills, No Night Sweats, No Fatigue, No Malaise ENT/Mouth : Complaining of dental pain in the right mandibular side, states he is aware of bad dentition. No Hearing loss, No Ear Pain, No Nasal Congestion, No Sinus Pain, No Hoarseness, No sore throat, No Rhinorrhea, No Swallowing Difficulty Eyes: No Eye Pain, No Swelling, No Redness, No Foreign Body, No Discharge, No Vision Changes Cardiovascular : No Chest Pain, No SOB, No Dyspnea on Exertion, No Orthopnea, No Edema, No Palpitations Respiratory : No Cough, No Sputum, No Wheezing, No Smoke Exposure, No Dyspnea Gastrointestinal : No Nausea, No Vomiting, No Diarrhea, No Constipation, No abdominal Pain, No Hematochezia, No Melena Genitourinary : no irregular bleeding, No Dysuria, No Urinary Frequency, No Hematuria, No Urinary Incontinence, No Urgency, No Flank Pain, No Urinary Flow Changes, No Hesitancy Musculoskeletal : No joint pain, No Myalgias, No Joint Swelling Skin : No Skin Lesions, No rash Neuro : No Weakness, No Numbness, No Paresthesias, No Loss of Consciousness, No Dizziness, No Headache Psych : No Anxiety/Panic, No Depression, No SI/HI/AH/VH, No Social Issues, Heme/Lymph: No Bruising, No Bleeding,No Lymphadenopathy Endocrine : No Polyuria, No Polydipsia, No Temperature Intolerance PMF Past Medical History Medical History No known health problems Social History Social History Alcohol intake: never Patient Tobacco Use Status: Never used Tobacco Substance Use Type: Marijuana Advance Directives: No Advance Directives Information Provided: Yes Physical Exam Exam: Exam: Appearance: Alert. Oriented X3. No acute distress. Eyes: Pupils equal, round and reactive to light. ENT: Pharynx normal. Patient has poor dentition, cracked molars in the right mandibular side, no obvious abscess formation Neck: Normal inspection. Neck supple. No lymph nodes noted. No crepitus CVS: Normal heart rate and rhythm. Pulses normal. Normal S1 and S2 Respiratory: No respiratory distress. Breath sounds normal. No Wheezing. No rales Abdomen: Soft and nontender. No rigidity. No distention. Skin: Skin warm and dry. Normal skin color. Normal skin turgor. Extremities: No lower extremity edema. No Lacerations. No Rash Neuro: Oriented X 3. No motor deficit. No sensory deficit. Moving all extremities. No slurred speech. CN 2 through 12 grossly intact Psych: calm, cooperative, normal affect Vital Signs: Vital Signs: Last Vital Signs Temp 98.7 F 08/21/25 20:31 Pulse 74 08/21/25 20:31 Resp 18 08/21/25 20:31 BP 155/74 H 08/21/25 20:31 Pulse Ox 98 08/21/25 20:31 O2 Del Method Room Air 08/21/25 20:31 BMI result Body Mass Index 23.8 Course Course Course Narrative: Patient complaining of dental pain for several months, per patient, his dentist requested for him to come to the emergency room or PCP to get antibiotics prior to the 1st visit Patient states that the pain is fairly well controlled with Tylenol and Motrin at home Medical Decision Making Medical Decision Making MDM Narrative: Patient states that he has trouble swallowing pills . Per patient's request, he was given liquid antibiotics. Patient was given the 1st dose of amoxicillin here in the emergency room. Patient declined pain medication at this time, states the pain is fairly well controlled. Patient states that he has enough Tylenol and Motrin at home Discharge Plan Discharge Clinical Impression: Pain, dental Patient Disposition: Home, Self-Care Instructions: Toothache (ED) Additional Instructions: Please follow-up with your primary care physician tomorrow. If you have any worsening or new symptoms, please return to the emergency room or call 911 Prescriptions: New amoxicillin 400 mg/5 mL suspension for reconstitution 500 mg PO TID 10 Days Qty: 187.5 0RF No Action ketorolac 10 mg tablet 10 mg PO TID PRN (Reason: pain) 5 Days Qty: 15 0RF cyclobenzaprine 10 mg tablet 10 mg PO TID PRN (Reason: muscle spasm) Qty: 20 0RF lidocaine 5 % adhesive patch,medicated 1 patch topical DAILY Qty: 30 0RF Rx Instructions: leave on most painful area for up to 12 hrs ibuprofen 600 mg tablet 600 mg PO Q6H PRN (Reason: pain) Qty: 30 0RF chlorhexidine gluconate [Peridex] 0.12 % mouthwash 15 ml buccal BID Qty: 118 0RF amoxicillin 400 mg/5 mL suspension for reconstitution 875 mg PO TID 7 Days Qty: 229.688 0RF epinephrine [EpiPen] 0.3 mg/0.3 mL auto-injector 0.3 mg IM Q10M PRN (Reason: anaphylaxis) Qty: 2 0RF Rx Instructions: for 2 doses amoxicillin 400 mg/5 mL suspension for reconstitution 800 mg PO BID 10 Days Qty: 200 0RF ibuprofen [Children's Ibuprofen] 100 mg/5 mL suspension 600 mg PO Q6H PRN (Reason: fever or pain) Qty: 500 0RF ketorolac 10 mg tablet 10 mg PO TID PRN (Reason: pain) 5 Days Qty: 15 0RF amoxicillin-pot clavulanate 875-125 mg tablet 1 tab PO BID 7 Days Qty: 14 0RF acetaminophen 650 mg/20.3 mL suspension 650 mg PO Q4H PRN (Reason: pain) Qty: 609 0RF ibuprofen 100 mg/5 mL suspension 600 mg PO Q6H PRN (Reason: pain) Qty: 473 0RF ondansetron 4 mg tablet,disintegrating 4 mg PO Q6H PRN (Reason: nausea and vomiting) Qty: 15 0RF amoxicillin 400 mg/5 mL suspension for reconstitution 500 mg PO TID 7 Days Qty: 131.25 0RF amoxicillin 400 mg/5 mL suspension for reconstitution 500 mg PO TID 7 Days Qty: 131.25 0RF meloxicam 15 mg tablet 15 mg PO DAILY Qty: 14 0RF amoxicillin 400 mg/5 mL suspension for reconstitution 800 mg PO TID Qty: 300 0RF Print Language: [place]
[2025-08-21] MEDS: Amoxicillin Oral Susp 4,000 MG/80 ML BOTTLE 500 MG PO (22:30)
[2025-08-21 22:33] VITALS: BP 149/88; PULSE 78; RESP 15; TEMP 36.8; O2SAT 98
== END 2025-08-21 22:34 | disposition home or self-care (01) ==
PROVIDERS: Emergency Provider Emergency Medicine; PCP Internal Medicine
DX: K08.89 Other specified disorders of teeth and supporting structures (principal)
CPT/HCPCS: 99282; 99283